=== PATIENT | female | born 1995 | race Caucasian/White ===

== ENCOUNTER 2019-08-01 18:17 | Day surgery (SDC) | payer BC, SELFPAY ==
[2019-08-01 18:18] VITALS: BP 151/96; PULSE 94; RESP 16; TEMP 36.6; O2SAT 99; BMI 43.5
--- NOTE | 2019-08-01 18:20 | US_ITS ---
We are attempting to reach an attending provider to discuss findings. An addendum with communication details will be sent when the communication is complete. STUDY: FIRST TRIMESTER OBSTETRICAL ULTRASOUND REASON FOR EXAM: Female, 23 years old PELVIC PAIN AND SPOTTING HCG 1716 ON 13 LMP: 05/18/2019 TECHNIQUE: Transvaginal TECHNICAL QUALITY: Adequate. PRIOR ULTRASOUND: None. FINDINGS: No intrauterine gestation is seen at this time. The uterus measures 10.6 x 4.8 x 4.6 cm. There is no demonstrated uterine fibroid. The cervix is closed. The right ovary measures 2.7 x 2.3 x 2.2 cm. There is no right ovarian cyst. There is no visualized right adnexal mass or complex lesion. The left ovary measures 2.6 x 2.5 x 3.1 cm. There is no left ovarian cyst. An ill-defined mass is present in the left adnexa measuring 4.4 x 4.2 x 3.6 cm. The abnormality is slightly hyperechoic. No yolk sac, gestational sac, or embryo is identified within the lesion at this time. There is a moderate amount of fluid in the cul de sac. Debris is present in the urinary bladder. US/Transvaginal w/Preg US IMPRESSION: No intrauterine gestation is visible at this time. An ill-defined slightly hyperechoic mass is present in the left adnexa measuring 4.4 x 4.2 x 3.6 cm. No yolk sac, gestational sac, or embryo is identified within the lesion at this time. Ectopic gestation cannot be excluded. CHILD CARE CENTER ADMINISTRATOR consultation and continued ultrasound and beta hCG follow up is likely indicated. Moderate free pelvic fluid. Electronically Signed: Adrien Og MD at 20:14 EDT Tel , Service support ,
--- NOTE | 2019-08-01 18:43 | ED.VIS.FEGU ---
History of Present Illness Chief Complaint: Vag Bld, Preg Informant: Patient Pain: Pelvic Pain Onset: Today Context: Gradual Onset Timing: Continuous Quality: Cramping, Sharp Location: Suprapubic Narrative: Patient is a 23-year-old G2, P1 currently 5 weeks with last menstrual period May 18 presenting with worsening abdominal pain and vaginal bleeding. Patient states she is had some spotting for the past 4 days and some mild cramping for the past 3 days. Today she had significant worsening of her pain that she describes as severe. States it is worse than labor pains. She states it radiates into her back. She is tried taking Tylenol with no relief of the pain. She called her TELEPHONE EXCHANGE OPERATOR who instructed her to come to the emergency room for ectopic rule out. She is had a very mild increase in her vaginal bleeding but states is not very much. No passage of clots or tissue. Patient denies any other complaints such as lightheadedness, nausea, vomiting or dizziness. She denies any urinary symptoms. Past Medical History - Allergies and Home Meds Allergies/Adverse Reactions: Allergies No Known Allergies Allergy (Verified 08/01/19 18:21) Past Medical History: None Surgical History: - - Bilateral tympanostomy tubes, colonoscopy Lives: Spouse/ Significant Other Smoking Status: Never smoker Review of Systems General: Denies: Chills, Fever, Sweats Eyes: Denies: Visual changes - bilaterally, Diplopia ENT: Denies: Rhinorrhea, Sore throat Cardiovascular: Denies: Chest pain, Palpitations Respiratory: Denies: Dyspnea, Cough, Dyspnea on exertion Gastrointestinal: Reports: Abdominal pain. Denies: Nausea, Vomiting, Diarrhea, Melena, Hematochezia Genitourinary: Reports: - - Vaginal bleeding, pelvic pain. Denies: Dysuria, Hematuria, Frequency Musculoskeletal: Denies: Back pain, Extremity Pain Skin: Denies: Rash, Wounds Neurological: Denies: Headache, Weakness, Numbness Physical Exam Vital Signs/Narrative: Vital Signs Temp Pulse Resp BP Pulse Ox 08/01/19 18:18 97.8 F 94 16 151/96 H 99 Inital Vital Signs reviewed: Yes General: Well nourished, Well developed, Obese Head: Normocephalic, Atraumatic Eyes: Perrl, EOMI ENT: Moist mucous membranes, No rhinorrhea Neck: Supple, Nontender Cardiovascular: Regular rate, Regular rhythm, No murmurs Respiratory: No distress, CTA bilaterally, Chest nontender Abdomen: Soft, Nondistended, Normal bowel sounds, Tender - Suprapubic region. Negative for: Guarding, Rebound tenderness Back: Nontender, Normal Inspection. Negative for: CVA tenderness Extremities: Nontender, No edema Skin: Normal color, No rash Neurological: Alert, Oriented x3, Cranial nerves II-XII grossly intact, Normal Strength, Normal Sensation Psychological: Normal affect Diagnostic/Tx/Re-eval Pelvic US: Free Fluid, Adnexal Mass, left Clinical Impression(s) from Imaging Studies Obstetrics Ultrasound 08/01/19 18:20 IMPRESSION: No intrauterine gestation is visible at this time. An ill-defined slightly hyperechoic mass is present in the left adnexa measuring 4.4 x 4.2 x 3.6 cm. No yolk sac, gestational sac, or embryo is identified within the lesion at this time. Ectopic gestation cannot be excluded. TELEPHONE EXCHANGE OPERATOR consultation and continued ultrasound and beta hCG follow up is likely indicated. Moderate free pelvic fluid. Electronically Signed: Adrein Og MD at 20:14 EDT Tel , Service support , ADDENDUM: 08/01/192052 IMPRESSION: No intrauterine gestation is visible at this time. An ill-defined slightly hyperechoic mass is present in the left adnexa measuring 4.4 x 4.2 x 3.6 cm. No yolk sac, gestational sac, or embryo is identified within the lesion at this time. Ectopic gestation cannot be excluded. TELEPHONE EXCHANGE OPERATOR consultation and continued ultrasound and beta hCG follow up is likely indicated. Moderate free pelvic fluid. N.B. : The above information has been verbally conveyed by Adrien Og MD to Bindu Woods MD, on 08/01/2019 20:46:44 (ET). Electronically Signed: Adrien Og MD at 20:14 EDT Tel , Service support , Laboratory Data 08/01/19 08/01/19 08/01/19 18:40 18:40 18:58 WBC 7.4 RBC 4.39 Hgb 13.6 Hct 39.9 MCV 90.9 MCH 31.0 MCHC 34.1 RDW Std Deviation 39.2 RDW Coeff of [place] 11.9 Plt Count 240 MPV 10.2 Immature Gran % (Auto) 0.100 Neut % (Auto) 58.2 Lymph % (Auto) 28.7 Williams % (Auto) 9.4 Eos % (Auto) 2.6 Baso % (Auto) 1.0 Absolute Neuts (auto) 4.3 Absolute Lymphs (auto) 2.11 Nucleated RBC % 0 Sodium Potassium Chloride Carbon Dioxide Anion Gap BUN Creatinine Estim Creat Clear Calc Est GFR (MDRD) Af Amer Est GFR (MDRD) Non-Af BUN/Creatinine Ratio Glucose Calcium Total Bilirubin AST ALT Alkaline Phosphatase Total Protein Albumin Globulin Albumin/Globulin Ratio HCG, Quant 786 H Urine Color Urine Clarity Urine pH Ur Specific [place] Urine Protein Urine Glucose (UA) Urine Ketones Urine Occult Blood Urine Nitrite Urine Bilirubin Urine Urobilinogen Ur Leukocyte Esterase Urine RBC Urine WBC Ur Squamous Epith Cells Amorphous Sediment Urine Bacteria Urine Mucus Blood Type Cancelled A1 Antigen Typing Rho(D) Type Antibody Screen 08/01/19 08/01/19 08/01/19 18:58 19:08 19:08 WBC RBC Hgb Hct MCV MCH MCHC RDW Std Deviation RDW Coeff of [place] Plt Count MPV Immature Gran % (Auto) Neut % (Auto) Lymph % (Auto) Williams % (Auto) Eos % (Auto) Baso % (Auto) Absolute Neuts (auto) Absolute Lymphs (auto) Nucleated RBC % Sodium 138 Potassium 4.1 Chloride 106 Carbon Dioxide 26.0 Anion Gap 6 BUN 10 Creatinine 0.74 Estim Creat Clear Calc 110.69 Est GFR (MDRD) Af Amer 123 Est GFR (MDRD) Non-Af 102 BUN/Creatinine Ratio 13.4 Glucose 93 Calcium 9.0 Total Bilirubin 0.20 AST 21 ALT 39 Alkaline Phosphatase 78 Total Protein 7.2 Albumin 3.5 Globulin 3.7 Albumin/Globulin Ratio 0.9 HCG, Quant Urine Color Urine Clarity Urine pH Ur Specific [place] Urine Protein Urine Glucose (UA) Urine Ketones Urine Occult Blood Urine Nitrite Urine Bilirubin Urine Urobilinogen Ur Leukocyte Esterase Urine RBC Urine WBC Ur Squamous Epith Cells Amorphous Sediment Urine Bacteria Urine Mucus Blood Type O POSITIVE Cancelled A1 Antigen Typing Cancelled Rho(D) Type Cancelled Antibody Screen NEGATIVE 08/01/19 19:40 WBC RBC Hgb Hct MCV MCH MCHC RDW Std Deviation RDW Coeff of [place] Plt Count MPV Immature Gran % (Auto) Neut % (Auto) Lymph % (Auto) Williams % (Auto) Eos % (Auto) Baso % (Auto) Absolute Neuts (auto) Absolute Lymphs (auto) Nucleated RBC % Sodium Potassium Chloride Carbon Dioxide Anion Gap BUN Creatinine Estim Creat Clear Calc Est GFR (MDRD) Af Amer Est GFR (MDRD) Non-Af BUN/Creatinine Ratio Glucose Calcium Total Bilirubin AST ALT Alkaline Phosphatase Total Protein Albumin Globulin Albumin/Globulin Ratio HCG, Quant Urine Color Yellow Urine Clarity Clear Urine pH 7.0 Ur Specific [place] 1.010 Urine Protein Negative Urine Glucose (UA) Normal Urine Ketones Negative Urine Occult Blood 25 H Urine Nitrite Negative Urine Bilirubin Negative Urine Urobilinogen Normal Ur Leukocyte Esterase Negative Urine RBC 0 SEEN Urine WBC 0 SEEN Ur Squamous Epith Cells 0-5 SEEN Amorphous Sediment 1+ Urine Bacteria 0 SEEN Urine Mucus 0 SEEN Blood Type A1 Antigen Typing Rho(D) Type Antibody Screen - Treatment/Re-Evaluation Treatment: Morphine IV Re-Evaluation: Feels Better - Medical Decision/Diagnostic Studies Patient is evaluated for sudden onset of worsening pelvic pain in the setting of 5 weeks gestation. Pelvic ultrasound obtained which is concerning for left adnexal mass/ectopic .Patient's quant is now 786. It was 1704 days ago. Patient is O+ and does not require RhoGam. Case is discussed with OB on-call who comes in to evaluate the patient at the bedside. Patient be taken for emergent ex lap for concern of ectopic with potential rupture. Patient remains hemodynamically stable in the emergency room. She is kept n.p.o. She does not require large volume resuscitation at this time. ED Disposition - Plan for ED Patient: Disposition: Acute Care Hospital [facility] Diagnosis: Ectopic
[2019-08-01] MEDS: Morphine 4 MG/ML Syringe IV (18:51)
[2019-08-01 18:53] LABS: Absolute Lymphocyte Count 2.11 X10^3/uL (0.83-4.51); Absolute Neutrophil Count 4.3 X10^3/uL (2.0-7.7); Basophil# 0.07 X10^3/uL; Eosinophil# 0.19 X10^3/uL; Eosinophils% 2.6 % (0-5); Hematocrit 39.9 % (37-47); Hemoglobin 13.6 g/dL (12.0-15.0); Lymphocyte # 2.11 X10^3/ul (4.0); Lymphocyte % 28.7 % (19-41); Mean Corp Hgb Conc 34.1 g/dL (32-36); Mean Corpuscular Volume 90.9 fL (81-99); Mean Platelet Vol. 10.2 fl (6.2-12.0); Monocyte# 0.69 X10^3/uL; Monocyte% 9.4 % (0-10); NRBC Flagged by Analyzer 0 % (0-5); Neutrophil # 4.29 X10^3/uL (2.7-7.7); Neutrophil % 58.2 % (47-70); Platelet Count 240 K/mm3 (150-450); RBC Distribution Width CV 11.9 % (11.6-14.6); RBC Distribution Width SD 39.2 fl (35.1-43.9); Red Blood Count 4.39 M/mm3 (4.2-5.4); White Blood Count 7.4 K/mm3 (4.4-11.0)
[2019-08-01] MEDS: Ondansetron 4 MG/2 ML Vial IV (18:59)
[2019-08-01 19:28] LABS: ALB/GLOB Ratio 0.9 RATIO (0.9-2.4); AST(SGOT) 21 U/L (15-37); Alanine Aminotransfer ALT/SGPT 39 U/L (13-56); Albumin, Serum 3.5 g/dL (3.2-5.0); Alkaline Phosphatase 78 U/L (45-117); Anion Gap 6 (5-15); BUN 10 mg/dL (7-18); BUN/Creat Ratio 13.4 RATIO (10-20); Chloride 106 mmol/L (98-107); Creatinine, Serum 0.74 mg/dL (0.55-1.02); EST Glomerular Filtration Rate 102 mL/min (>60); Est Glom Filt Rate - Afr Amer 123 mL/min (>60); Estimated Creatinine Clearance 110.69 ml/min; Globulin 3.7 g/dL (2.2-4.2); Glucose 93 mg/dL (74-106); Potassium 4.1 mmol/L (3.5-5.1); Protein, Total 7.2 g/dL (6.4-8.2); Sodium Level 138 mmol/L (136-145)
[2019-08-01 19:36] LABS: hCG Titer Quant., Serum 786 mIU/mL (1-3)
[2019-08-01 19:47] LABS: Bacteria 0 SEEN /hpf (None Seen); Mucous, Urine 0 SEEN /hpf (<or=2+); Red Blood Cells-Urine 0 SEEN /hpf (0-5); White Blood Cells 0 SEEN /hpf (0-5)
[2019-08-01 19:48] LABS: Color, Urine Yellow (Yellow); Glucose, Dipstick Normal (Normal); Ketone-Dipstick Negative (Negative); Leukocyte Esterase-Dipstick Negative /ul (Negative); Nitrite-Dipstick Negative (Negative); Occult Blood-Urine 25 /ul (Negative); Protein-Dipstick Negative (Negative); Urine Bilirubin Dipstick Negative (Negative); Urine Clarity Clear (Clear); Urine Urobilinogen Normal (Normal)
[2019-08-01 19:56] LABS: Amorphous Sediment 1+; Squamous Epithelial Cells - UA 0-5 SEEN /hpf (5-10)
[2019-08-01 20:33] VITALS: BP 142/86; PULSE 86; RESP 16; TEMP 36.8; O2SAT 96; BMI 43.5
[2019-08-01 20:41] VITALS: BP 142/86; PULSE 86; RESP 16; O2SAT 96
--- NOTE | 2019-08-01 20:54 | PCM.HP.OB ---
- Problem List (1) Ectopic Status: Acute (2) Abdominal pain Status: Acute (3) Vaginal bleeding Status: Acute History Date of Admission: 08/01/19 History of this : This is a 23 year-old, G2, P1, at ~5 weeks gestational age presents to the emergency department with severe abdominal pain and vaginal bleeding. She states she is about 5 weeks based on LMP. She had a hCG quant on July 23 that was 721 followed by an hCG quant on July 27 that was 1716. She states she has had spotting for several days, and today she began having severe abdominal pain which is what brought her to the ER. She states she was doubled over in pain and could not stand up due to the pain. She has no other complaints. Medical History: Medical History (Last Updated 08/01/19 @ 20:[address] Rosy Rivera, DO) History of chlamydia Z86.19 History of migraine Z86.69 History of use of contraceptive intrauterine device (IUD) Z92.0 Surgical History: Surgical History (Last Updated 08/01/19 @ 20:[address] Rosy Rivera, ) History of colonoscopy Z98.890 History of placement of ear tubes Z96.22 History of tonsillectomy Z90.89 Allergies No Known Allergies Allergy (Verified 08/01/19 18:21) Home Medications: Home Medications Vit No.130/Iron/Folic [ Tablet] 1 ea PO DAILY 08/01/19 Smoking Status: Never smoker History Past Pregnancies: Past Pregnancies Delivery Date Name GA/ Weeks Outcome Route Wt Sex Labor Length Anesthesia Delivery Location Provider FOB Review of Systems Constitutional: Reports: - - No lightheadedness or dizziness. Denies: Chills, Fever, Malaise Respiratory: Denies: Cough, Shortness of Breath Gastrointestinal: Reports: Abdominal Pain, Diarrhea Gynecological: Reports: Vaginal bleeding Psychiatric: Denies: Anxiety, Depression Hematologic/ Lymphatic: Denies: Easy Bruising, Easy Bleeding Physical Exam Vitals: Vital Signs Temp Pulse Resp BP Pulse Ox 98.3 F 86 16 142/86 H 96 08/01/19 20:33 08/01/19 20:41 08/01/19 20:41 08/01/19 20:41 08/01/19 20:41 General: Alert, No apparent distress, - - Patient was tearful on the phone before coming into the ED because of the pain, more comfortable after receiving pain medication Assessment/Plan All Active Problems (Last Updated 08/01/19 @ 20:[address] Rosy Rivera, DO) Ectopic (Acute) Abdominal pain (Acute) Vaginal bleeding (Acute) This is a 23 year-old, who presented to the ER with early , vaginal bleeding, severe abdominal pain. Vital signs stable. Hemoglobin 13. Blood type O+. Pelvic ultrasound shows concern for an ectopic . hCG quant has decreased from prior that was drawn in the office. Discussed with patient concern for an ectopic , and all other possible etiologies. Discussed risks, benefits, alternatives of surgical management of an ectopic . Reviewed laparoscopic removal of an ectopic , possible salpingo-oophorectomy, possible laparotomy. Also discussed COVID-19. After full discussion of surgical management the patient desires to proceed. Consent was signed.
[2019-08-01] MEDS: 0.9% Normal Saline 1,000 ML 125 ML IV (21:30)
--- NOTE | 2019-08-01 21:30 | PCM.OPRPT ---
Problem List (1) Ectopic Status: Acute (2) Abdominal pain Status: Acute (3) Vaginal bleeding Status: Acute Report of Operation Date of Procedure: 08/01/19 Pre-Operative Diagnosis: Ectopic Post-Operative Diagnosis: Ruptured ectopic with hemoperitoneum Surgery/Procedure Performed:: Laparoscopic removal of ectopic , left salpingectomy Description of Surgical Findings:: Ruptured ectopic in the left fallopian tube with adhesions present between the tube to the ovary. The left tube was actively bleeding. Normal appearing uterus, bilateral ovaries, and right fallopian tube. Moderate amount of blood in pelvis. Type of Anesthesia:: General Special Medications: None Specimen's removed: Left fallopian tube, ectopic Drains: None Estimated Blood Loss (mL): 50 Fluids Replaced: 1000 Description of Procedure: Risk, benefits, and alternatives to surgery were discussed with the patient and consent was obtained prior to surgery. The patient was taken to the operating room and general anesthesia was induced. She was then positioned in dorsal lithotomy position using yellowfin stirrups, and she was prepped and draped in the normal sterile fashion. A weighted speculum was then placed in the vagina. The anterior lip of the cervix was grasped with a single-tooth tenaculum. A Mcihelle cannula was then placed for uterine manipulation. Gloves were changed and attention was turned to the abdominal portion of the case. Local was injected inferior to the umbilicus, an incision was made to accommodate a 5 mm port. The 5 mm port was placed under direct visualization. Once confirmed intraperitoneal CO2 gas was connected and the abdomen was insufflated to adequate distention. Findings were as noted above. Next a left lateral 5 mm port was placed. A 5 mm right lateral port was placed. An 11 mm suprapubic port was placed. The ectopic was identified in the left fallopian tube and the end of the fallopian tube was grasped with a grasper, and the LigaSure device was then used to transect the mesosalpinx and transect the fallopian tube proximal to the ectopic . An Endo Catch bag was then used to remove the left fallopian tube and the ectopic . This was then sent to pathology for review. The area was examined and noted to be hemostatic. All ports were removed and CO2 gas was disconnected and the abdomen was desufflated. The fascia of the suprapubic incision was closed with a figure of eight suture. All laparoscopic incisions were closed in a subcuticular pattern fashion. At the end of the procedure the uterine manipulator was removed from the cervix and a vaginal sweep was performed. Instrument count was correct. Patient was taken to the recovery room in stable condition. Grafts/Implants Used: None - Complications None - Admit VTE Documentation VTE Present on Admission: No VTE Mechan Device Prophylaxis: SCD's
[2019-08-01 21:34] VITALS: BP 142/86; PULSE 86; RESP 16; TEMP 36.8; O2SAT 96
--- NOTE | 2019-08-01 21:42 | ED.RN ---
REPORT TO GALO FRANCO IN OR. PT TRANSFERRED OUT OF ED TO OR. PT SKIN P/W/D, RESP EVEN AND UNLABORED, PT A&O X 3. NO DISTRESS NOTED.
[2019-08-02 00:05] VITALS: BP 142/86; BP 143/89; PULSE 86; RESP 18; TEMP 36.7; O2SAT 98
[2019-08-02] MEDS: 0.9% Normal Saline 1,000 ML 125 ML IV (00:10)
[2019-08-02 00:15] VITALS: BP 131/80; BP 142/86; PULSE 75; RESP 18; O2SAT 100
[2019-08-02 00:30] VITALS: BP 133/74; BP 142/86; PULSE 73; RESP 18; O2SAT 100
[2019-08-02] MEDS: Ketorolac 30 MG/ML Syringe IV (00:41)
--- NOTE | 2019-08-02 00:43 | DCINST_ITS ---
You will use the following diet at home:: No restrictions Your food should be the consistency of: Regular Discharge Activity: May Not Drive, May not drive while taking narcotic pain medications., May Shower, May Take a Tub Bath May resume sexual activity in: 2 weeks Ice area for (Minutes): 15 Weight Bearing Status: Weight bearing as tolerated Lifting Restrictions: No lifting greater than 15 pounds for 4 weeks Call your doctor if your incision/area has: Sudden Increased Bleeding, Increased Pain/ Swelling, Increased Redness, Foul Smelling Discharge, Swelling at the incision site Call your doctor if you observe: Fever of 101 or Higher, Inability to urinate, Inability to have a bowel movement, Using more than one pad per hour, Shortness of breath, Dizziness, Chest pain, Increased palpitations (irregular heartbeat), Calf discomfort, Uncontrolled pain Suture Line Care: Avoid Pulling/Pushing, Avoid Pinching/Bending Cleanse incision/area with: Soap & Water Allergies/Adverse Reactions: Allergies No Known Allergies Allergy (Verified 08/01/19 18:21) Medications to take at Discharge Vit No.130/Iron/Folic [ Tablet] 1 ea PO DAILY 08/01/19 Oxycodone HCl/Acetaminophen [Percocet 5/325] 1 tab PO Q6H PRN PRN 7 Days #20 tab 08/02/19 The following prescriptions were given: Oxycodone HCl/Acetaminophen [Percocet 5/325] 1 tab PO Q6H PRN PRN 7 Days #20 tab PRN Reason: Pain Score 6-10/10 Transmission Status: Received by DAVID ROSSI-[address] [facility] Primary Care Physician: Kirsty Fowler MD [Primary Care Provider] - Test Results: Test results from this visit will be discussed in further detail at your follow- up appointment, if applicable. Please Follow Up With: Rosy Rivera DO When: 1 week for a virtual visit
[2019-08-02 00:45] VITALS: BP 126/73; BP 142/86; PULSE 83; RESP 18; O2SAT 100
[2019-08-02 00:51] VITALS: BP 142/86; PULSE 80; RESP 18; TEMP 36.9; O2SAT 100
[2019-08-02] MEDS: HYDROcodone Bitartrate/Apap 5/325 Tablet PO (01:07)
[2019-08-02 01:40] VITALS: BP 132/78; BP 142/86; PULSE 87; RESP 18; TEMP 36.9; O2SAT 100
--- NOTE | 2019-08-03 | FALS_PTH ---
PATIENT: BRANNON STILES LOC: [facility] [place] U#:[id number] AGE/SX: 23/F ROOM: RE08/01/[address]: Dr. Rosy Rivera DO : 1995 BED: DIS: 08/02/2019 SPEC #: [id number] RECD: 08/03/19 12:12 STATUS: HEATH MING #: [id number] ASHWINI: 08/03/19 00:[address]: Rosy Rivera DEPT: SURGICAL PATHOLOGY RECD BY: Devin Arenas ENTERED: 08/03/19 12:13 SP TYPE: FALL TUBES OTHR DR: Dr. Kirsty Fowler MD Tissues: ECTOPIC PREG Procedures: Surgery Specimen Level IV HEADER OPERATION: Laparoscopic removal ectopic , left salpingectomy PRE-OP DIAGNOSIS: Ectopic TISSUE SUBMITTED: Left fallopian tube, ectopic MICROSCOPIC DIAGNOSIS Left fallopian tube, ectopic , salpingectomy: Fallopian tube with immature chorionic villi, decidua and blood clots (ectopic ). RUSS:[email or web address] 08/04/19 MICROSCOPIC DESCRIPTION Slides are reviewed. GROSS DESCRIPTION Received in fixative is one container labeled with the patient's name and designated left fallopian tube, ectopic . The specimen consists of a fallopian tube measuring 4 cm in length and 1.5 cm in diameter. It is covered with blood clots. Obvious fimbrial end is not identified. Sections reveal the lumen is filled with blood clots. No obvious tissue is identified. Banquet Pilot sections are submitted in four cassettes. / RUSS:[email or web address] 08/03/19 TC:5 CPT: 17748
== END 2019-08-02 00:13 | disposition home or self-care (01) ==
LOC: ED 19:59 → SDC 08-03 10:51
PROVIDERS: Emergency Provider Emergency Medicine; PCP Internal Medicine; Visit Provider Obstetrics & Gynecology
PROC: 10T24ZZ Resection of Products of Conception, Ectopic, Percutaneous Endoscopic Approach (ICD-10-PCS; CPT 59150; principal; 2019-08-01 22:00)
DX: O00.102 Left tubal pregnancy without intrauterine pregnancy (principal)
CPT/HCPCS: 59151; 36415; 76817; 80053; 81001; 84702; 85025; 86850; 86900; 86901; 88305; 99285; J7030; A4216; J2405

== ENCOUNTER 2020-01-13 14:32 | Emergency (ER) | payer BC, SELFPAY ==
[2020-01-13 14:34] VITALS: BP 138/85; PULSE 93; RESP 16; TEMP 36.1; O2SAT 97; BMI 43.5
--- NOTE | 2020-01-13 15:11 | US_ITS ---
STUDY: FIRST TRIMESTER OBSTETRICAL ULTRASOUND REASON FOR EXAM: Female, 24 years old CRAMPS N AND V LMP: October 25, 2019 TECHNIQUE: Transvaginal TECHNICAL QUALITY: Adequate. PRIOR ULTRASOUND: None. FINDINGS: There is visualization of a single gestational sac in a normal intrauterine position. The mean sac diameter (MSD) measures 2.2 cm, indicating an estimated gestational age (EGA) of 7 weeks, 2 days. The gestational sac shape is within normal limits. There is a visualized yolk sac. The yolk sac measures 0.4 cm. The placenta is non-visualized. There is visualization of a live embryo. The crown-rump length (CRL) measures 1.1 cm, indicating an estimated gestational age (EGA) of 7 weeks, 2 days. There is demonstrated cardiac activity with a heart rate of 119 bpm. The estimated gestation age (EGA) by LMP is 11 weeks, 3 days. The estimated date of delivery (ABILIO) by LMP is July 31, 2020. The estimated gestation age (EGA) by US is 7 weeks, 2 days. The estimated date of delivery (ABILIO) by US is August 29, 2020. The uterus measures 10.4 x 6.1 x 4.4 cm. There is no demonstrated uterine fibroid. The cervix is closed. The right ovary measures 3.8 x 2.5 x 2.0 cm. There is no right ovarian cyst. There is no visualized right adnexal mass or complex lesion. The left ovary measures 2.8 x 2.0 x 1.4 cm. There is no left ovarian cyst. There is no visualized left adnexal mass or complex lesion. There is no fluid in the cul de sac. US/Transvaginal w/Preg US IMPRESSION: Single intrauterine gestation 7 weeks 2 days with estimated due date August 29, 2020. Electronically Signed: Chuy Womack MD at 17:45 EDT , Service support ,
--- NOTE | 2020-01-13 15:12 | ED.VIS.GEN ---
History of Present Illness Chief Complaint: Nausea/Vomiting Informant: Patient Narrative: 24-year-old female presenting with nausea, vomiting, body aches, fever. She states her symptoms started on Saturday. Initially she just felt tired. She thought she all related because she is 10 weeks . On Saturday she was sent home because she had a fever of just over 100. She states that he has had body aches that are improving. Her fever is responding to Tylenol. She called her CONTRACT ADMINISTRATION MANAGER because she is having difficulty holding down food and fluids and after relating her symptoms to her she was told to come to the emergency room for COVID?19 testing. Patient previously had an ectopic with emergent surgery and July. She is stating that she has some mild cramping in her abdomen. She has had not had any vaginal bleeding. She states she does have decreased urinary output but denies dysuria or hematuria. She states scheduled for an ultrasound tomorrow but she is unsure why they were repeating it 2 weeks after the first vaginal ultrasound. She does not have a cough or shortness of breath. Past Medical History - Allergies and Home Meds Allergies/Adverse Reactions: Allergies No Known Allergies Allergy (Verified 01/13/20 14:35) Primary Care Physician: Kirsty Fowler MD [Primary Care Provider] - Past Medical History: - - Reviewed in problem list Surgical History: - - Bilateral tympanostomy tubes, colonoscopy, ectopic Lives: Spouse/ Significant Other Smoking Status: Never smoker Alcohol: None Drugs: None Review of Systems General: Reports: Chills, Fever, Malaise Eyes: Denies: Visual changes - bilaterally, Diplopia ENT: Reports: Bilateral ear pain Cardiovascular: Denies: Chest pain, Palpitations Respiratory: Denies: Dyspnea, Cough Gastrointestinal: Reports: Abdominal pain - Mild abdominal cramping, Nausea, Vomiting Genitourinary: Reports: - - Decreased urinary output. Denies: Dysuria, Hematuria Musculoskeletal: Reports: Myalgias. Denies: Arthralgias Skin: Denies: Rash, Abscess Neurological: Denies: Headache, Weakness Psych: Denies: Depression, Anxiety Physical Exam Vital Signs/Narrative: Vital Signs Temp Pulse Resp BP Pulse Ox 01/13/20 14:34 97 F L 93 16 138/85 H 97 Inital Vital Signs reviewed: Yes General: Well nourished, No Acute Distress Head: Normocephalic, Atraumatic Eyes: Perrl, EOMI. Negative for: Scleral icterus ENT: Moist mucous membranes, No rhinorrhea. Negative for: Nasal congestion Cardiovascular: Regular rate, Regular rhythm Respiratory: No distress, CTA bilaterally, Chest nontender Abdomen: Soft, Nontender, Nondistended Extremities: Nontender, No edema Skin: Normal color, No rash. Negative for: Pallor Neurological: Alert, Oriented x3 Psychological: Normal affect, Normal Mood Diagnostic/Tx/Re-eval - Medical Decision Making Clinical Impression(s) from Imaging Studies Obstetrics Ultrasound 01/13/20 15:11 IMPRESSION: Single intrauterine gestation 7 weeks 2 days with estimated due date August 29, 2020. Electronically Signed: Chuy Womack MD at 17:45 EDT , Service support , Laboratory Data 01/13/20 01/13/20 01/13/20 16:25 16:25 16:25 WBC 8.4 RBC 4.66 Hgb 14.2 Hct 42.7 MCV 91.6 MCH 30.5 MCHC 33.3 RDW Std Deviation 40.6 RDW Coeff of [place] 12.2 Plt Count 231 MPV 10.0 Immature Gran % (Auto) 0.200 Neut % (Auto) 71.5 H Lymph % (Auto) 19.0 Worth % (Auto) 7.6 Eos % (Auto) 1.3 Baso % (Auto) 0.4 Absolute Neuts (auto) 6.0 Absolute Lymphs (auto) 1.60 Nucleated RBC % 0 Sodium 134 L Potassium 3.9 Chloride 104 Carbon Dioxide 25.0 Anion Gap 5 BUN 10 Creatinine 0.81 Estim Creat Clear Calc 100.26 Est GFR (MDRD) Af Amer 112 Est GFR (MDRD) Non-Af 93 BUN/Creatinine Ratio 12.4 Glucose 82 Calcium 9.0 Magnesium 2.2 Total Bilirubin 0.40 AST 13 L ALT 30 Alkaline Phosphatase 102 Total Protein 8.2 Albumin 3.6 Globulin 4.6 H Albumin/Globulin Ratio 0.8 L HCG, Quant 25916 H 24-year-old female presenting with viral symptoms as well as hyperemesis gravidarum. I did check blood work and this is normal. Her serum quant is appropriate. After discussing the patient with her CONTRACT ADMINISTRATION MANAGER they were bringing her in tomorrow for an ultrasound because they had a 5-week old ultrasound due to previous ectopic . Her CONTRACT ADMINISTRATION MANAGER stated that they were bringing her in to rule out ectopic since it was so early last time. She recommended getting a ultrasound here in the ED today because the patient has to quarantine now due to COVID symptoms. Patient's ultrasound does not identify ectopic . Viable fetus as documented above. Patient's nausea is improved. She be sent home with Zofran. She will quarantine until she gets her test results. Impression: 1. Possible exposure to COVID?19 2. Viral syndrome 3. Abdominal cramping 4. hyperemesis gravidarum ED Disposition - Plan for ED Patient: Disposition: Home or Assisted Living Instructions: Hyperemesis Gravidarum (Severe Morning Sickness), ED Viral Syndrome Prescriptions: Ondansetron [Zofran Odt] 4 mg PO Q8H PRN PRN #10 tab PRN Reason: Nausea Transmission Status: Received by DAVID ROSSI-[id number] [facility] Referrals: Kirsty Fowler MD [Primary Care Provider] -
[2020-01-13 16:37] LABS: Basophil# 0.03 X10^3/uL; Basophil% 0.4 % (0-1); Eosinophil# 0.11 X10^3/uL; Eosinophils% 1.3 % (0-5); Hematocrit 42.7 % (37-47); Hemoglobin 14.2 g/dL (12.0-15.0); Mean Corp Hgb Conc 33.3 g/dL (32-36); Mean Corpuscular Hgb 30.5 pg (27.0-32.0); Mean Corpuscular Volume 91.6 fL (81-99); Monocyte# 0.64 X10^3/uL; Monocyte% 7.6 % (0-10); NRBC Flagged by Analyzer 0 % (0-5); Neutrophil # 6.04 X10^3/uL (2.7-7.7); Neutrophil % 71.5 % (47-70); Platelet Count 231 K/mm3 (150-450); RBC Distribution Width CV 12.2 % (11.6-14.6); RBC Distribution Width SD 40.6 fl (35.1-43.9); Red Blood Count 4.66 M/mm3 (4.2-5.4); White Blood Count 8.4 K/mm3 (4.4-11.0)
[2020-01-13] MEDS: Ondansetron 4 MG/2 ML Vial IV (16:48)
[2020-01-13 16:54] VITALS: BP 142/66; PULSE 69; RESP 17; O2SAT 99
[2020-01-13 16:55] LABS: ALB/GLOB Ratio 0.8 RATIO (0.9-2.4); AST(SGOT) 13 U/L (15-37); Alanine Aminotransfer ALT/SGPT 30 U/L (13-56); Albumin, Serum 3.6 g/dL (3.2-5.0); Alkaline Phosphatase 102 U/L (45-117); Anion Gap 5 (5-15); BUN 10 mg/dL (7-18); BUN/Creat Ratio 12.4 RATIO (10-20); Chloride 104 mmol/L (98-107); Creatinine, Serum 0.81 mg/dL (0.55-1.02); EST Glomerular Filtration Rate 93 mL/min (>60); Est Glom Filt Rate - Afr Amer 112 mL/min (>60); Estimated Creatinine Clearance 100.26 ml/min; Globulin 4.6 g/dL (2.2-4.2); Glucose 82 mg/dL (74-106); Magnesium 2.2 mg/dL (1.6-2.6); Potassium 3.9 mmol/L (3.5-5.1); Protein, Total 8.2 g/dL (6.4-8.2); Sodium Level 134 mmol/L (136-145)
[2020-01-13 17:26] LABS: hCG Titer Quant., Serum 45250 mIU/mL (1-3)
[2020-01-13 18:59] VITALS: BP 138/72; PULSE 78; RESP 17; O2SAT 97
== END 2020-01-13 19:01 | disposition home or self-care (01) ==
LOC: ED 15:54
PROVIDERS: Emergency Provider Student in an Organized Health Care Education/Training Program; PCP Internal Medicine
DX: O98.511 Other viral diseases complicating pregnancy, first trimester (principal); O26.891 Other specified pregnancy related conditions, first trimester; B34.9 Viral infection, unspecified; R10.9 Unspecified abdominal pain; O21.0 Mild hyperemesis gravidarum; Z3A.10 10 weeks gestation of pregnancy
CPT/HCPCS: 76817; 80053; 83735; 84702; 85025; 87635; 96374; 99284; J7030; A4216; J2405; U0003

== ENCOUNTER 2020-08-22 07:10 | Inpatient (IN) | payer BC, SELFPAY ==
[2020-08-22] VITALS (64 sets, daily range): BP systolic 102–147; BP diastolic 52–83; PULSE 74–108; TEMP 36.6–37.2; O2SAT 82–100; BMI 46.4
[2020-08-22] MEDS: Lactated Ringers 1,000 ML 50 ML IV (07:40)
[2020-08-22 07:59] LABS: Absolute Lymphocyte Count 2.09 X10^3/uL (0.83-4.51); Basophil# 0.04 X10^3/uL; Basophil% 0.4 % (0-1); Eosinophil# 0.14 X10^3/uL; Eosinophils% 1.5 % (0-5); Hematocrit 33.4 % (37-47); Hemoglobin 10.7 g/dL (12.0-15.0); Lymphocyte # 2.09 X10^3/ul (0.83-4.51); Lymphocyte % 22.5 % (19-41); Mean Corpuscular Volume 84.1 fL (81-99); Mean Platelet Vol. 10.4 fl (6.2-12.0); Monocyte% 9.7 % (0-10); NRBC Flagged by Analyzer 0 % (0-5); Neutrophil # 6.03 X10^3/uL (2.7-7.7); Neutrophil % 64.9 % (47-70); Platelet Count 215 K/mm3 (150-450); RBC Distribution Width CV 12.8 % (11.6-14.6); RBC Distribution Width SD 38.5 fl (35.1-43.9); Red Blood Count 3.97 M/mm3 (4.2-5.4); White Blood Count 9.3 K/mm3 (4.4-11.0)
[2020-08-22] MEDS: Oxytocin 30 units/NS 500 ml 30 UNITS/500 ML IV.SOLN IV (08:12)
[2020-08-22] MEDS: 0.9% Normal Saline Single 100 ML IV.SOLN. INTRA-UTER (08:15)
[2020-08-22 09:30] LABS: Bedside Glucose 170 mg/dL (70-110)
[2020-08-22 09:36] LABS: Bedside Glucose 143 mg/dL (70-110)
[2020-08-22 10:41] LABS: Bedside Glucose 117 mg/dL (70-110)
[2020-08-22 11:40] LABS: Bedside Glucose 103 mg/dL (70-110)
[2020-08-22] MEDS: Lactated Ringers 500 ML 999 ML IV ×2 (12:15→20:35)
[2020-08-22] MEDS: fentaNYL-bupivacaine (epidural) 100 ML BAG EPIDURAL ×2 (13:08→18:50)
--- NOTE | 2020-08-22 13:16 | HP.PCM.OB_ITS ---
[facility] - General General Date of Admission: 08/22/20 Chief Complaint: induction of labor [facility] Narrative BRANNON STILES, is a 24 F 3 para 1-0-1-1 who presents at 39 weeks gestation for induction of labor due to gestational diabetes on insulin. She denies any vaginal bleeding or leaking of fluid. She is had good movement. No regular contractions. was complicated to date by gestational diabetes. She also tested positive for chlamydia early in the but repeat screen was negative. FOR[facility]LY [facility], [facility] Medical History (Updated 08/22/20 @ 13:[address] Kellee Resendiz MD) Ectopic Gestational diabetes History of chlamydia History of migraine History of use of contraceptive intrauterine device (IUD) Home Medications vit no.[id number] 1 ea PO DAILY 08/01/19 [History Last Taken 08/22/20 06:00] insulin NPH isoph U-100 human [Humulin N NPH U-100 Insulin] 14 unit SUBCUT QHS 08/22/20 [History Last Taken 08/21/20 22:00] Allergy/AdvReac Type Severity Reaction Status Date / Time No Known Allergies Allergy Verified 01/13/20 14:35 Surgical History (Updated 01/13/20 @ 15:[address] Carlos Hernandez, DO) History of colonoscopy History of placement of ear tubes History of tonsillectomy Social History Smoking Status: Never smoker History Elective abortions Hx Para 1 Spontaneous abortions Hx # Term Pregnancies Ectopic pregnancies Hx # Pregnancies Multiple births # of living children NST FHR Rate Baby A Baseline: normal Variability:: Moderate Accelerations:: 15 x 15 Decelerations:: None NST Reactive:: Yes FHR Category:: Category I (at admission) ROS Constitutional Constitutional: Denies fatigue, fever(s) or malaise Eyes Eyes: Denies change in vision ENT HEENT: Denies dizziness or headache(s) Cardiovascular Cardiovascular: Denies chest pain, dyspnea or lightheadedness Respiratory/Chest Respiratory/Chest: Denies cough or dyspnea Gastrointestinal Gastrointestinal: Denies change in bowel habits Genitourinary Genitourinary: Denies burning urination or genital lesions Integumentary Integumentary: Denies rash Neurologic Neurologic: Denies confusion, dizziness, headache(s), numbness or weakness Vital Signs Vital Signs Vital Signs: 08/22/20 07:47 08/22/20 07:48 08/22/20 07:54 Temperature 98.3 F Temperature Source Temporal Pulse Rate 103 H 94 Blood Pressure 119/74 BP Systolic 119 BP Diastolic 74 Pulse Ox 98 08/22/20 08:45 08/22/20 08:46 08/22/20 09:32 Temperature 98.0 F 97.9 F Temperature Source Temporal Temporal Pulse Rate 97 Blood Pressure 134/75 H BP Systolic 134 BP Diastolic 75 Pulse Ox 08/22/20 09:33 08/22/20 10:33 08/22/20 11:28 Temperature 97.9 F 97.9 F Temperature Source Temporal Temporal Pulse Rate 84 104 H Blood Pressure 141/75 H 130/83 H BP Systolic 141 130 BP Diastolic 75 83 Pulse Ox 92 08/22/20 11:29 08/22/20 12:10 08/22/20 12:11 Temperature 97.8 F Temperature Source Temporal Pulse Rate 84 81 Blood Pressure 115/61 130/81 H BP Systolic 115 130 BP Diastolic 61 81 Pulse Ox 08/22/20 12:41 08/22/20 12:43 08/22/20 12:46 Temperature Temperature Source Pulse Rate 81 89 83 Blood Pressure 134/83 H BP Systolic 134 BP Diastolic 83 Pulse Ox 100 100 08/22/20 12:48 08/22/20 12:51 08/22/20 12:53 Temperature Temperature Source Pulse Rate 82 88 100 Blood Pressure 130/78 H BP Systolic 130 BP Diastolic 78 Pulse Ox 90 82 91 08/22/20 12:55 08/22/20 12:56 08/22/20 12:59 Temperature Temperature Source Pulse Rate 93 88 95 Blood Pressure 125/74 H 128/77 H BP Systolic 125 128 BP Diastolic 74 77 Pulse Ox 99 08/22/20 13:01 08/22/20 13:06 08/22/20 13:07 Temperature Temperature Source Pulse Rate 96 88 87 Blood Pressure 120/75 BP Systolic 120 BP Diastolic 75 Pulse Ox 100 100 08/22/20 13:10 08/22/20 13:11 08/22/20 13:15 Temperature 98.6 F Temperature Source Temporal Pulse Rate 84 80 Blood Pressure 124/81 H 116/73 BP Systolic 124 116 BP Diastolic 81 73 Pulse Ox 100 Physical Exam Const alert and no apparent distress General Appearance: cooperative HEENT normocephalic Resp normal respiratory effort Cardio regular rate GI soft to palpation GI Narrative: gravid, nontender, appropriate for gestational age Extremity no calf tenderness General Extremity: edema Skin no wounds Rashes: No rashes noted Psych activity/motor behavior normal Assessment & Plan (1) 39 weeks gestation of : (2) Supervision of other high risk pregnancies, third trimester: (3) Gestational diabetes requiring insulin: PLAN: 24-year-old 3 para 0-1-0-1 1 at 39 weeks gestation for induction of labor due to gestational diabetes on insulin. Will monitor blood sugars. Estimated weight is less than 4500 g clinically and by ultrasound. Pelvis clinically adequate to expect vaginal delivery. May have epidural as needed for pain control. Plan Pitocin, Hernández and artificial rupture of membranes for induction. Procedure note: At approximately 8:30 AM a Hernández catheter was placed over a stylette through the internal cervical os and the balloon inflated to 30 cc. Placement over internal cervical os was confirmed. Patient tolerated the procedure well. (4) Maternal obesity syndrome in third trimester: (5) Obesity, Class III, BMI 40-49.9 (morbid obesity):
[2020-08-22 15:15] LABS: Bedside Glucose 82 mg/dL (70-110)
[2020-08-22] MEDS: Lactated Ringers 1,000 ML 200 ML IV ×2 (17:28→23:00)
[2020-08-22] MEDS: Acetaminophen 325 MG Tablet PO ×2 (18:52→22:45)
[2020-08-22] MEDS: Ondansetron 4 MG/2 ML Vial IV (19:31)
[2020-08-22 20:00] LABS: Bedside Glucose 77 mg/dL (70-110)
[2020-08-22 22:11] LABS: Bedside Glucose 88 mg/dL (70-110)
[2020-08-22 23:16] LABS: Bedside Glucose 93 mg/dL (70-110)
[2020-08-23] VITALS (26 sets, daily range): BP systolic 93–152; BP diastolic 45–102; PULSE 75–114; RESP 14–18; TEMP 36.3–38.1
[2020-08-23] MEDS: fentaNYL-bupivacaine (epidural) 100 ML BAG EPIDURAL (00:22)
[2020-08-23 01:10] LABS: Bedside Glucose 95 mg/dL (70-110)
[2020-08-23 02:20] LABS: Bedside Glucose 105 mg/dL (70-110)
[2020-08-23] MEDS: Oxytocin 30 units/NS 500 ml 30 UNITS/500 ML IV.SOLN 334 UNITS IV (03:13)
[2020-08-23] MEDS: miSOPROStol 200 MCG Tablet 800 MCG RC (03:20)
--- NOTE | 2020-08-23 03:25 | EX.PCM.OBRPT ---
Maternal Data Information Final ABILIO: 08/29/20 Final ABILIO Source: US <20 weeks Gestational age: 39 weeks 1 day Vaginal Delivery Maternal Presentation Maternal Presentation: Medically Indicated Induction Type of Induction: Pitocin and Amniotomy Medical Reason for Induction: - (gestational diabetes, insulin controlled) Operative Information Date of Procedure: 08/23/20 Pre-Operative Diagnosis: labor Post-Operative Diagnosis: same Surgery / Procedure Performed: Spontaneous Vaginal Delivery Type of Anesthesia: Epidural Special Medications: none Drain: Hernández to straight drain Estimated Blood Loss: 400 Findings Description of Procedure: A vigorous [female] infant was delivered [RALPH] over a small first-degree perineal laceration. The remainder the was delivered with maternal pushing and gentle traction only in less than 15 seconds. The Pitocin infusion was initiated for active management of the third stage. The cord was clamped and cut [after 1 minute]. The was attended to by the waiting nursing staff. The placenta was delivered spontaneously and intact. The cervix and vagina were intact. The first-degree perineal laceration was repaired with 2-0 Vicryl suture in a running standard fashion. Sponge and needle counts were correct. A vaginal sweep was completed by me. [id number] Presentation: RALPH Amniotic Membrane Rupture Type: Artificial Amniotic Fluid Description: Clear Placental Delivery Description: Spontaneous Placenta Disposition: [facility] Cord Vessel Description: 3 Vessels Cord Entanglement: None Infant A Gender: Female (Dany[place]rescentchel) (1 minute): 8 (5 minute): 9 Delayed Cord Clamping: Yes Post Vaginal Delivery Medications Given After Delivery: IV Pitocin and - (cytotec 800 mcg rectally to prevent atony) Episiotomy Description: None Laceration: 1st degree Complication Complications: None
[2020-08-23 05:20] LABS: Bedside Glucose 180 mg/dL (70-110)
--- NOTE | 2020-08-23 08:16 | PCM.PN.OB ---
Subjective Subjective: Patient seen at bedside. Up voiding in bathroom. Feeling good but tired. Denies any pain. with support. Had difficulty last baby and stopped. Anticipate discharge home tomorrow. Objective Data Objective Data Vital Signs: Vital Signs Temp Pulse Resp BP Pulse Ox 98.1 F 93 18 140/63 H 99 08/23/20 07:44 08/23/20 07:44 08/23/20 07:44 08/23/20 07:44 08/22/20 23:02 Oxygen Delivery Method Room Air Weight: 296 lb 8 oz Body Mass Index (BMI) 46.4 Intake & Output: Intake and Output for Last 24 Hours 08/21/20 08/22/20 08/23/20 23:59 23:59 23:59 Intake Total 3396.29 / 3396.29 3426.50 / 3426.50 Output Total 900 / 900 200 / 200 Balance 2496.29 / 2496.29 3226.50 / 3226.50 Lab / Micro Data Result Diagrams: 08/22/20 07:40 Labs: Laboratory Results - last 24 hr 08/22/20 08/22/20 08/22/20 07:40 08:21 09:31 POC Glucose 170 H 143 H Blood Type O POSITIVE Antibody Screen NEGATIVE 08/22/20 08/22/20 08/22/20 10:31 11:27 15:12 POC Glucose 117 H 103 82 Blood Type Antibody Screen 08/22/20 08/22/20 08/22/20 19:44 22:02 23:08 POC Glucose 77 88 93 Blood Type Antibody Screen 08/23/20 08/23/20 08/23/20 00:49 02:13 04:47 POC Glucose 95 105 180 H Blood Type Antibody Screen Micro: Microbiology 08/22/20 07:40 Mucosa - Nose SARS-CoV-2 Antigen (Rapid) - Final Physical Exam Const alert and no apparent distress General Appearance: cooperative and comfortable Exam Limitations: no limitations HEENT normocephalic Eyes General Eye: normal appearance of both eyes Neck full ROM General: normal visual inspection Chest Chest: symmetrical chest wall rise Resp normal respiratory effort and normal air movement Effort and Inspection: symmetric chest movement Auscultation: clear to auscultation bilaterally Cardio regular rate and regular rhythm GI normal to inspection, nondistended, normoactive bowel sounds Back/Spine normal ROM Extremity full ROM and no calf tenderness General Extremity: normal exam except as noted Skin no rashes or lesions noted Neuro CN's II-XII intact bilaterally Psych mental status grossly normal Assessment & Plan (1) (spontaneous vaginal delivery): (2) Obesity, Class III, BMI 40-49.9 (morbid obesity): (3) Gestational diabetes requiring insulin: PLAN: PPD 1 Routine care Pain control support Anticipate discharge home tomorrow
[2020-08-24 04:04] VITALS: BP 112/57; PULSE 67; RESP 14; TEMP 36.3
[2020-08-24 04:08] VITALS: BP 112/57; PULSE 67
[2020-08-24 04:20] LABS: Bedside Glucose 79 mg/dL (70-110)
[2020-08-24 04:25] LABS: Hematocrit 30.6 % (37-47); Hemoglobin 9.6 g/dL (12.0-15.0); Mean Corp Hgb Conc 31.4 g/dL (32-36); Mean Corpuscular Hgb 26.7 pg (27.0-32.0); Mean Corpuscular Volume 85.2 fL (81-99); Mean Platelet Vol. 10.2 fl (6.2-12.0); Platelet Count 215 K/mm3 (150-450); RBC Distribution Width CV 13.2 % (11.6-14.6); RBC Distribution Width SD 40.8 fl (35.1-43.9); Red Blood Count 3.59 M/mm3 (4.2-5.4); White Blood Count 11.7 K/mm3 (4.4-11.0)
[2020-08-24 08:36] VITALS: BP 109/63; PULSE 90
[2020-08-24] MEDS: Acetaminophen 500 MG Tablet 1000 MG PO (08:54)
[2020-08-24 08:56] VITALS: BP 109/63; PULSE 90; RESP 18; TEMP 36.5
--- NOTE | 2020-08-24 09:52 | PCM.PROGNOTE ---
Subjective Subjective Doing well per patient and nursing staff. Ambulating and taking PO without difficulty. Voiding and passing flatus. Pain controlled. Objective Data Objective Data Vital Signs: Vital Signs Temp Pulse Resp BP Pulse Ox 97.7 F L 90 18 109/63 99 08/24/20 08:56 08/24/20 08:56 08/24/20 08:56 08/24/20 08:56 08/22/20 23:02 Oxygen Delivery Method Room Air Weight: 296 lb 8 oz Body Mass Index (BMI) 46.4 Intake & Output: Intake and Output for Last 24 Hours 08/22/20 08/23/20 08/24/20 23:59 23:59 23:59 Intake Total 3396.29 / 3396.29 3426.50 / 3426.50 Output Total 900 / 900 500 / 500 Balance 2496.29 / 2496.29 2926.50 / 2926.50 Lab / Micro Data Result Diagrams: 08/24/20 04:10 Labs: Laboratory Results - last 24 hr 08/24/20 08/24/20 04:09 04:10 WBC 11.7 H RBC 3.59 L Hgb 9.6 L Hct 30.6 L MCV 85.2 MCH 26.7 L MCHC 31.4 L RDW Std Deviation 40.8 RDW Coeff of [place] 13.2 Plt Count 215 MPV 10.2 POC Glucose 79 Micro: Microbiology 08/22/20 07:40 Mucosa - Nose SARS-CoV-2 Antigen (Rapid) - Final Physical Exam Const alert and oriented x3 General Appearance: cooperative Orientation / Consciousness: awake, oriented to person, oriented to place and oriented to time Exam Limitations: no limitations HEENT normocephalic Head and Scalp: normal to inspection, normocephalic and atraumatic Face and Sinus: normal facial exam Eyes General Eye: normal appearance of both eyes Neck full ROM Chest Chest: symmetrical chest wall rise Resp normal respiratory effort and normal air movement Auscultation: clear to auscultation bilaterally Cardio regular rate, regular rhythm, S1 normal heart sound, S2 normal heart sound, no murmurs, no rub, no gallops and no clicks GI normal to inspection, nondistended, normoactive bowel sounds and non-tender appearance of the vagina normal Bladder / Kidney Exam: no CVA tenderness Back/Spine normal ROM Extremity normal to inspection and full ROM Skin no rashes or lesions noted Neuro oriented x3, CN's II-XII intact bilaterally and moves all extremities Sensorium / Orientation: awake, alert and oriented to person Motor Exam: clonus absent Deep Tendon Reflexes: Rt Patellar (L4): 2+ and Lt Patellar (L4): 2+ Assessment & Plan Assessment/Plan (1) (spontaneous vaginal delivery): PLAN: 1) Routine instructions 2) Vitals stable 3) Follow up in 2 weeks and 6 weeks
--- NOTE | 2020-08-24 09:52 | PCM.DC ---
Discharge Instructions Diet Discharge Diet: No restrictions Activity Discharge Activity: Return to Normal Activity May resume sexual activity in: 6 weeks Weight Bearing Status: Full weight bearing Follow Up Care Test Results: Test results from this visit will be discussed in further detail at your follow-up appointment, if applicable. Discharge Plan Admission Admit Date/Time: 08/22/20 07:10 Primary Reason for Your Visit: Induction of Labor, Vaginal Delivery Attending Provider: Kellee Resendiz Primary Care Provider: Kirsty Fowler Instructions Forms: Information Patient Instructions: After a Vaginal , Vaginal : Your Experience Discharge Orders/Prescriptions Prescriptions: New naproxen 250 mg Tablet 500 mg PO Q12H PRN (Reason: Pain Score 1-3) Qty: 30 RF: 0 acetaminophen 500 mg Tablet 1,000 mg PO Q8H PRN PRN (Reason: Pain Score 1-3) Qty: 0 RF: 0 Continued vit no.[id number] 1 EACH tablet 1 ea PO DAILY RF: 0 Discontinued Humulin N NPH U-100 Insulin 100 unit/mL Suspension 14 unit SUBCUT QHS RF: 0 Referrals / Follow Up: Shannan Signer CNM [Certified Nurse Electron Tube Assembler] - Kirsty Fowler MD [Primary Care Provider] - Kellee Resendiz MD [STAFF PHYSICIAN] - See Referral Note (Follow up in 2 days for blood pressure check. Follow up in 2 weeks for virtual visit and 6 weeks for in office visit) Disposition Disposition (needs filled in before D/C Order can be placed): Home, self care
--- NOTE | 2020-08-24 12:02 | NURSING ---
late entry- ashish marsh was in and talked w pt regarding follow up- office will constact pt and have her be seen either this saturday or saturday for a bp check. then to have a virtual visit in 2 weeks and then office visit in 6 weeks.
== END 2020-08-24 12:30 | disposition home or self-care (01) | DRG 807 ==
PROVIDERS: Admitting Provider Obstetrics & Gynecology; PCP Internal Medicine; Visit Provider Obstetrics & Gynecology
DX: O24.424 Gestational diabetes mellitus in childbirth, insulin controlled (principal); Z37.0 Single live birth; O99.214 Obesity complicating childbirth; E66.01 Morbid (severe) obesity due to excess calories; O70.0 First degree perineal laceration during delivery; Z3A.39 39 weeks gestation of pregnancy
CPT/HCPCS: 59025; 59050; 82962; 85025; 85027; 86850; 86900; 86901; 87426; 99218; J7120; G0378; J2405

== ENCOUNTER 2023-11-18 16:08 | Emergency (ER) | payer MEDICAID, SELFPAY ==
[2023-11-18 16:08] VITALS: BP 139/75; PULSE 82; RESP 16; TEMP 36.8; O2SAT 99; BMI 38.0
--- NOTE | 2023-11-18 16:24 | ED.VIS.FEGU ---
HPI HPI - Female History of Present Illness Chief Complaint: Abd Pain PFSH PFSH Medical History Avulsion fracture of left ankle Left ankle pain Gestational diabetes History of use of contraceptive intrauterine device (IUD) History of migraine History of chlamydia Ectopic Home Medications ?Medication ?Instructions ?Recorded ?Last Taken ?Type acetaminophen 500 mg tablet 1,000 mg (2 x 500 mg) PO Q8H PRN 08/24/20 Unknown Rx PRN Pain Score 1-3 #0 tabs bupropion HCl 75 mg tablet 75 mg PO TID 08/29/23 Unknown History dextroamphetamine-amphetamine 5 mg 5 mg PO DAILY 08/29/23 Unknown History tablet (Adderall) norethindrone acetate 1.5 1 tab PO DAILY 08/29/23 Unknown History mg-ethinyl estradiol 30 mcg tablet (Junel) Allergy/AdvReac Type Severity Reaction Status Date / Time No Known Allergies Allergy Verified 11/18/23 16:29 Surgical History H/O gastric sleeve History of colonoscopy History of tonsillectomy History of placement of ear tubes Social History household members: spouse and children Smoking Status: Never smoker alcohol intake: never EXAM Physical Exam Const Vital Signs: 11/18/23 16:08 11/18/23 18:08 Temperature 98.2 F Temperature Source Temporal Pulse Rate 82 66 Respiratory Rate 16 16 Blood Pressure 139/75 H Blood Pressure Mean 96 Pulse Ox 99 98 Oxygen Delivery Method Room Air Room Air [facility] MDM Narrative Medical decision making narrative: HISTORY OF PRESENT ILLNESS: 27-year-old female presenting with right side abdominal pain. This started approximately 4 hours prior to arrival. Notes she is 5 weeks . Denies vaginal bleeding or leakage of any fluid. G4, P2 history of ectopic. Notes history of left-sided ectopic removal of ovary and fallopian tube. Notes pain today reminded her of this event. REVIEW OF SYSTEMS: Pertinent positives: Abdominal pain Pertinent negatives: Vaginal bleeding, syncope PHYSICAL EXAM: Nursing triage notes reviewed, Vital signs reviewed Constitutional: please see mdm HENT: MMM Eyes: Pupils equal round and reactive to light, Extraocular muscles intact Neck: No stridor, no JVD, full neck ROM Lungs: Clear to auscultation, No wheezing or rales. No increased work of breathing, no conversational dyspnea, no accessory muscle use, no nasal flaring. No respiratory distress noted Heart: Regular rate and rhythm, No murmurs, No rubs and No gallops, 2+ distal pulses (radial, femoral, posterior tibial) in all extremities Abdomen: Soft, there is no apparent elicited tenderness, rigidity, rebound or guarding, no obvious peritoneal signs, no palpable pulsatile abdominal masses, no auscultated abdominal bruit : No CVAT Extremities: No edema Neuro: No focal neurological deficits, cranial nerves II through XII intact, 5/5 strength in all extremities. Intact sensation to light touch in all extremities, 2+ reflexes bilateral patella tendons. Normal gait. No ataxia. Skin: No rash or lesions noted MEDICAL DECISION MAKING: Chief Complaint: Abdominal pain External records reviewed: Reviewed prior transvaginal ultrasound from December 2019 which showed a single live intrauterine gestation Factors affecting care: History of gestational diabetes Social determinants of health: none History obtained from others: none Consults: none [facility] Narrative: Patient was hemodynamically stable, afebrile and nontoxic-appearing. Exam without obvious peritoneal signs. I considered the following differential diagnosis: Ectopic present, miscarriage, early I obtained ultrasound, labs ALL IMAGES (IF OBTAINED) HAVE BEEN PERSONALLY REVIEWED AND INTERPRETED BY MYSELF. CBC without leukocytosis, severe anemia, no thrombocytopenia. hCG quant is 4637 Urine signs of slight inflammation, will send for culture and treat for asymptomatic bacteria O+ no need for RhoGAM Transvaginal ultrasound showed no evidence of obvious ectopic or miscarriage. Likely early gestation sac. Strict return precautions were discussed. Need for return if pain worsened as ectopic not completely ruled out was discussed with the patient. OB follow-up encouraged. diet instructions and vitamin instructions were given. The patient and/or family, caregivers express understanding. The patient and/or family, caregivers agrees with the plan. Shared decision making: I will have a discussion with the patient and or visitors regarding risk/benefits of further testing or admission. They will be made aware of of the risk/benefits inherent in this decision they will be given the opportunity to voice understanding. Total critical care time today provided was at least 0 minutes. This excludes separately billable procedures. Critical care time (if documented) is secondary to the patient having high probability of clinically significant/life threatening deterioration in the patient's condition which required my urgent intervention. Impression: 1. Abdominal pain 2. First trimester 3. Hx ofectopic Dispo: discharge home This note was generated with [employer] dictation software. It may contain incorrect words, spelling, and punctuation that were not noted in review of the chart prior to signing. Lab Data Labs: Laboratory Results - last 24 hr 11/18/23 16:40 WBC 8.7 RBC 4.30 Hgb 13.0 Hct 39.7 MCV 92.3 MCH 30.2 MCHC 32.7 RDW Std Deviation 40.9 RDW Coeff of [place] 12.0 Plt Count 260 MPV 10.4 Immature Gran % (Auto) 0.200 Neut % (Auto) 64.4 Lymph % (Auto) 25.6 Mccone % (Auto) 7.7 Eos % (Auto) 1.5 Baso % (Auto) 0.6 Absolute Neuts (auto) 5.6 Absolute Lymphs (auto) 2.22 Nucleated RBC % 0 HCG, Quant 4637 H Urine Color Yellow Urine Clarity Clear Urine pH 6.0 Ur Specific [place] 1.025 Urine Protein Negative Urine Glucose (UA) Normal Urine Ketones Negative Urine Occult Blood Negative Urine Nitrite Negative Urine Bilirubin Negative Urine Urobilinogen Normal Ur Leukocyte Esterase 100 H Urine RBC 0 SEEN Urine WBC 0-5 SEEN Ur Squamous Epith Cells 5-10 SEEN Amorphous Sediment 1+ Urine Bacteria 2+ Urine Mucus 0 SEEN Blood Type O POSITIVE Radiography Diagnostic Testing: Clinical Impression(s) from Imaging Studies Obstetrics Ultrasound 11/18/23 16:25 IMPRESSION: Probable very early gestational viability is not yet established. Recommend short interval follow-up. Electronically Signed: Ankur Craig MD at 18:21 EDT , Discharge Plan Triage Chief Complaint: Abd Pain Other Complaint: Female C/O ED Provider: Venu Bryant Dx/Rx/DC Orders Prescriptions: No Action bupropion HCl 75 mg tablet 75 mg PO TID Rx Instructions: administer 6 hours apart dextroamphetamine-amphetamine [Adderall] 5 mg tablet 5 mg PO DAILY norethindrone ac-eth estradiol [Junel (21)] 1.5-30 mg-mcg tablet 1 tab PO DAILY acetaminophen 500 mg Tablet 1,000 mg PO Q8H PRN PRN (Reason: Pain Score 1-3) Qty: 0 0RF Primary Care Provider: Kirsty Fowler Referrals: Kirsty Fowler MD [Primary Care Provider] - Print Language: Russian
--- NOTE | 2023-11-18 16:25 | US_ITS ---
STUDY: FIRST TRIMESTER OBSTETRICAL ULTRASOUND REASON FOR EXAM: Female, 27 years old Lower abdominal pain rule out ectopic LMP: 10/16/2023 TECHNIQUE: Transvaginal TECHNICAL QUALITY: Adequate. PRIOR ULTRASOUND: None. FINDINGS: There is visualization of a single gestational sac in a normal intrauterine position. The mean sac diameter (MSD) measures 1.0, indicating an estimated gestational age (EGA) of 5 weeks, 5 days. The gestational sac shape is within normal limits. There is no demonstrated yolk sac. The placenta is non-visualized. There is no demonstrated embryo ( pole). The estimated gestation age (EGA) by LMP is 4 weeks, 5 days. The estimated date of delivery (ABILIO) by LMP is 07/22/2024. The estimated gestation age (EGA) by US is 5 weeks or less. The uterus measures 10.0 x 4.6 x 4.8 cm. There is no demonstrated uterine fibroid. The cervix is closed. The right ovary measures 4.6 x 3.0 x 3.2 cm. Cystic structures in the right ovary/adnexa measure 1.7 and 2.5 cm. There is no visualized right adnexal mass or complex lesion. The left ovary has been removed. There is minimal fluid in the cul de sac. US/Transvaginal w/Preg US IMPRESSION: Probable very early gestational viability is not yet established. Recommend short interval follow-up. Electronically Signed: Ankur Craig MD at 18:21 EDT ,
[2023-11-18 16:50] LABS: Mucous, Urine 0 SEEN /hpf (<or=2+); Red Blood Cells-Urine 0 SEEN /hpf (0-5)
[2023-11-18 16:52] LABS: Absolute Lymphocyte Count 2.22 X10^3/uL (0.83-4.51); Absolute Neutrophil Count 5.6 X10^3/uL (2.0-7.7); Basophil# 0.05 X10^3/uL; Basophil% 0.6 % (0-1); Eosinophil# 0.13 X10^3/uL; Eosinophils% 1.5 % (0-5); Hematocrit 39.7 % (37-47); Lymphocyte # 2.22 X10^3/ul (0.83-4.51); Lymphocyte % 25.6 % (19-41); Mean Corp Hgb Conc 32.7 g/dL (32-36); Mean Corpuscular Hgb 30.2 pg (27.0-32.0); Mean Corpuscular Volume 92.3 fL (81-99); Mean Platelet Vol. 10.4 fl (6.2-12.0); Monocyte# 0.67 X10^3/uL; Monocyte% 7.7 % (0-10); NRBC Flagged by Analyzer 0 % (0-5); Neutrophil # 5.57 X10^3/uL (2.7-7.7); Neutrophil % 64.4 % (47-70); Platelet Count 260 K/mm3 (150-450); RBC Distribution Width SD 40.9 fl (35.1-43.9); White Blood Count 8.7 K/mm3 (4.4-11.0)
[2023-11-18 16:57] LABS: Color, Urine Yellow (Yellow); Glucose, Dipstick Normal (Normal); Ketone-Dipstick Negative (Negative); Leukocyte Esterase-Dipstick 100 /ul (Negative); Nitrite-Dipstick Negative (Negative); Occult Blood-Urine Negative /ul (Negative); Protein-Dipstick Negative (Negative); Specific Gravity, Urine 1.025 (1.002-1.030); Urine Bilirubin Dipstick Negative (Negative); Urine Clarity Clear (Clear); Urine Urobilinogen Normal (Normal)
[2023-11-18 17:14] LABS: Amorphous Sediment 1+; Bacteria 2+ /hpf (None Seen); Squamous Epithelial Cells - UA 5-10 SEEN /hpf (5-10); White Blood Cells 0-5 SEEN /hpf (0-5)
[2023-11-18 17:30] LABS: hCG Titer Quant., Serum 4637 mIU/mL (1-3)
[2023-11-18 18:08] VITALS: PULSE 66; RESP 16; O2SAT 98
[2023-11-18] MEDS: 0.9% Normal Saline (500mL Bag) 500 ML 999 ML IV (18:42)
== END 2023-11-18 20:20 | disposition home or self-care (01) ==
PROVIDERS: Emergency Provider Emergency Medicine; PCP Internal Medicine; Visit Provider Emergency Medicine
DX: O26.891 Other specified pregnancy related conditions, first trimester (principal); R10.9 Unspecified abdominal pain; R82.71 Bacteriuria; O09.11 Supervision of pregnancy with history of ectopic pregnancy, first trimester; Z3A.01 Less than 8 weeks gestation of pregnancy; Z79.899 Other long term (current) drug therapy
CPT/HCPCS: 76817; 81001; 84702; 85025; 86900; 86901; 87086; 87088; 96360; 96361; 99285; J7030; A4216

== ENCOUNTER 2023-11-22 12:48 | Day surgery (SDC) | payer MEDICAID, SELFPAY ==
[2023-11-22] VITALS (18 sets, daily range): BP systolic 107–131; BP diastolic 64–84; PULSE 53–75; RESP 14–20; TEMP 36.1–36.8; O2SAT 93–100; BMI 37.9
--- NOTE | 2023-11-22 13:34 | US_ITS ---
We are attempting to reach an attending provider to discuss findings. An addendum with communication details will be sent when the communication is complete. INDICATION: vaginal bleed -- miscarriage? r/o POC EXAMINATION: Ultrasound US OB Transvaginal TECHNIQUE: Transvaginal and transabdominal ultrasound was performed. Grayscale, spectral waveform, and color flow Doppler evaluation of the adnexa. COMPARISON: Ultrasound 11/18/2023 LMP: 09/16/2023 FINDINGS: Uterus measures 9.8 cm in length. Normal configuration. No gestational sac identified within the endometrial canal. Small fluid collection noted in the endometrial canal. This collection is relatively flattened and elongated configuration compared to the prior. Right ovary: 4.4 x 3.8 x 3.7 cm. Small cyst, 2.5 x 1.5 x 2.1 cm, and complex cyst: 3.1 x 2.8 x 3.1 cm. Complex mass adjacent to the right ovary measures 3.8 x 2.7 x 3.3 cm with a small hypoechoic focus centrally. Not present on the prior. No pole or yolk sac identified within this structure. Left ovary: 3.5 x 2.0 x 2.3 cm with small follicles. The ovaries appear unremarkable with vascular flow demonstrated. Small amount of free fluid in the cul-de-sac. US/Transvaginal w/Preg US IMPRESSION: Right adnexal complex mass suspicious for ectopic . No evidence of intrauterine . Small endometrial fluid collection possibly a pseudocyst of ectopic . Small amount of free fluid. Electronically Signed: Stella Mayo MD at 16:22 EDT ,
--- NOTE | 2023-11-22 14:00 | ED.VIS.FEGU ---
HPI HPI - Female History of Present Illness Chief Complaint: Vag Bld, Preg Informant: patient Narrative Narrative: G4, P2 5 weeks gestation by ultrasound presents increasing vaginal bleeding since 7 AM. Going through 2 pads soaked per hour with clots. Increased cramping lower abdomen. Was seen 3 days ago due to cramping came to ED diagnosed with intrauterine . She had an ectopic in 2019 with left salpingectomy with oophorectomy followed by Dr. Kellee Resendiz [facility] [place]. Reports increased lightheaded symptoms or for came to the ED. Records no blood type O+. Prior similar symptoms: No PFSH PFSH Medical History Avulsion fracture of left ankle Left ankle pain Gestational diabetes History of use of contraceptive intrauterine device (IUD) History of migraine History of chlamydia Ectopic Home Medications ?Medication ?Instructions ?Recorded ?Last Taken ?Type acetaminophen 500 mg tablet 1,000 mg (2 x 500 mg) PO Q8H PRN 08/24/20 Unknown Rx PRN Pain Score 1-3 #0 tabs bupropion HCl 75 mg tablet 75 mg PO TID 08/29/23 Unknown History dextroamphetamine-amphetamine 5 mg 5 mg PO DAILY 08/29/23 Unknown History tablet (Adderall) norethindrone acetate 1.5 1 tab PO DAILY 08/29/23 Unknown History mg-ethinyl estradiol 30 mcg tablet (Junel) cephalexin 500 mg capsule 500 mg PO TID #15 caps 11/18/23 Unknown Rx Allergy/AdvReac Type Severity Reaction Status Date / Time No Known Allergies Allergy Verified 11/22/23 12:48 Family History no significant family his Surgical History H/O gastric sleeve History of colonoscopy History of tonsillectomy History of placement of ear tubes Social History household members: spouse and children Smoking Status: Never smoker alcohol intake: never ROS ROS ED Constitutional Constitutional ED: Denies chills, fever(s) or sweats Eyes Eyes: Denies change in vision ENT ENT ED: Denies dysphagia or sore throat Cardiovascular Cardiovascular: Denies chest pain, leg edema, palpitations or racing heartbeat Respiratory/Chest Respiratory/Chest: Denies cough, dyspnea or dyspnea on exertion Gastrointestinal Gastrointestinal: Denies abdominal pain, diarrhea, nausea or vomiting Genitourinary Genitourinary ED: Reports other Details: Vaginal bleeding with clots, pelvic cramping ; Denies dysuria, hematuria or urinary frequency Musculoskeletal Musculoskeletal: Denies back pain, extremity pain or neck pain Integumentary Denies rash or wounds Neurologic Neurologic: Denies headache(s), paresthesias or weakness EXAM Physical Exam Const Vital Signs: 11/22/23 12:48 11/22/23 12:48 11/22/23 13:48 Temperature 97 F L 98.0 F 98.0 F Temperature Source Temporal Temporal Temporal Pulse Rate 75 61 61 Respiratory Rate 14 16 16 Respiratory Pattern Blood Pressure 113/81 H 118/70 Blood Pressure Mean 91 86 Blood Pressure Source Blood Pressure Position Blood Pressure Location Baseline BP Pulse Ox 98 93 94 Oxygen Delivery Method Room Air Room Air 11/22/23 14:00 11/22/23 15:00 11/22/23 15:30 Temperature Temperature Source Pulse Rate 63 63 Respiratory Rate 16 16 Respiratory Pattern Blood Pressure 110/78 112/70 107/83 H Blood Pressure Mean 88 84 91 Blood Pressure Source Blood Pressure Position Blood Pressure Location Baseline BP Pulse Ox 98 99 Oxygen Delivery Method Room Air Room Air 11/22/23 16:00 11/22/23 17:00 11/22/23 17:04 Temperature 98.2 F 98.2 F Temperature Source Oral Oral Pulse Rate 65 65 66 Respiratory Rate 16 16 16 Respiratory Pattern Blood Pressure 126/84 H 127/77 H 127/77 H Blood Pressure Mean 98 93 93 Blood Pressure Source Monitor Blood Pressure Position Semi-Fowlers Blood Pressure Location Left Arm Baseline BP Pulse Ox 100 100 100 Oxygen Delivery Method Room Air Room Air Room Air 11/22/23 18:00 11/22/23 18:25 11/22/23 18:55 Temperature 98.2 F 98.2 F Temperature Source Pulse Rate 61 62 62 Respiratory Rate 18 20 H 20 H Respiratory Pattern Blood Pressure 129/77 H 129/77 H 129/77 H Blood Pressure Mean 94 94 Blood Pressure Source Blood Pressure Position Blood Pressure Location Baseline BP Pulse Ox 96 98 98 Oxygen Delivery Method Room Air 11/22/23 20:05 11/22/23 20:09 11/22/23 20:10 Temperature 97.6 F L 97.6 F L Temperature Source Temporal Pulse Rate 61 63 58 L Respiratory Rate 16 14 16 Respiratory Pattern Normal Blood Pressure 122/76 H 119/65 119/65 Blood Pressure Mean 91 83 Blood Pressure Source Monitor Monitor Blood Pressure Position Semi-Fowlers Semi-Fowlers Blood Pressure Location Right Arm Right Arm Baseline BP 127/77 127/77 Pulse Ox 98 98 97 Oxygen Delivery Method Room Air Room Air 11/22/23 20:15 11/22/23 20:20 11/22/23 20:30 Temperature 97.1 F L Temperature Source Temporal Pulse Rate 58 L 53 L 60 Respiratory Rate 16 16 16 Respiratory Pattern Blood Pressure 112/64 111/64 131/65 H Blood Pressure Mean 80 79 87 Blood Pressure Source Monitor Monitor Blood Pressure Position Semi-Fowlers Semi-Fowlers Blood Pressure Location Right Arm Right Arm Baseline BP 127/77 127/77 127/77 Pulse Ox 98 99 99 Oxygen Delivery Method Room Air Room Air Room Air 11/22/23 20:33 11/22/23 20:49 Temperature 97.1 F L Temperature Source Temporal Pulse Rate 61 Respiratory Rate 16 Respiratory Pattern Normal Blood Pressure 130/74 H Blood Pressure Mean 92 Blood Pressure Source Monitor Blood Pressure Position Semi-Fowlers Blood Pressure Location Right Arm Baseline BP 127/77 Pulse Ox 100 Oxygen Delivery Method Room Air Positive well nourished and well developed General Appearance ED: well developed and NAD HEENT Reports moist mucous membranes normocephalic and atraumatic Eyes EOMs intact bilaterally and conjunctivae normal General Eye ED: Yes normal appearance of both eyes Neck no lymphadenopathy and supple General: Negative for tenderness Chest Wall Chest: Negative for tenderness Resp normal respiratory effort and normal air movement Effort and Inspection: symmetric chest movement; Negative for respiratory distress Cardio regular rate, regular rhythm and no murmurs Peripheral Pulses: pulses 2+ throughout GI normal to inspection, nondistended, normoactive bowel sounds and non-tender Palpation: Negative for guarding or rebound tenderness present Narrative: Mild pelvic tenderness no guarding or rebound. Speculum exam performed with nursing brush maker there is blood coming from the os there is no clots there is minimal blood in the vault. This was removed with Q-tip. Back/Spine no CVA tenderness and no thoracic nor lumbar tenderness Extremity normal to inspection General Extremety ED: Negative for edema or tenderness General Extremity: Negative for edema Neuro oriented x3 and no sensory deficits noted Sensorium / Orientation: awake and alert Skin no rashes or lesions noted and no wounds MDM MDM MDM Narrative Medical decision making narrative: Interventions / MDM: Differential diagnosis: Active miscarriage, vaginal bleeding, ectopic Diagnosis considered but do not suspect: N/A My EKG interpretation: N/A Imaging independently reviewed and interpreted by myself: Transvaginal ultrasound: Discussion with radiologist, her initial cyst in the intrauterine sac is currently not there. There is a new right complex adnexal mass up to 3.3 cm concerning for ectopic . External documents reviewed: N/A Test considered but not ordered:N/A ED course: Patient increasing vaginal bleeding Since this morning. IV established. O positive from records. H&H sent, hCG quant. Pelvic exam bleeding minimally from the os there is no clots. She sent for a repeat transvaginal ultrasound. H&H hemoglobin 13.1 hCG 9700 has more than doubled since 3 days ago. She was initially treated with morphine for pain. Pain returned after returning from ultrasound. Reported there is transient blood pressure of 70s that improved. Likely vasovagal. Blood pressure systolic 120s. Started on fluids additional pain medicine of fentanyl Zofran due to vomiting. Results of ultrasound discussion with radiologist concerning for a new right adnexal mass concerning for ectopic . Discussed likely cysts cysts and the gestational sac seen 3 days ago. 1640: I discussed with covering physician for Dr. Jose Mckeon findings and concerns. She will come the ED to evaluate the patient. She will be kept NPO. She is seen by OB, she was taken to the OR from the ED. Re-evaluation: stable Disposition discussed with patient/family/significant other: Patient Case discussed with consulting clinician: OB This note was generated with [employer] dictation software. It may contain incorrect words, spelling, and punctuation that were not noted in checking the note before signing. Lab Data Attestation: I reviewed the patient's lab results. Labs: Laboratory Results - last 24 hr 11/22/23 14:00 Hgb 13.1 Hct 39.4 HCG, Quant 9727 H Radiography Diagnostic Testing: Clinical Impression(s) from Imaging Studies Obstetrics Ultrasound 11/22/23 13:34 IMPRESSION: Right adnexal complex mass suspicious for ectopic . No evidence of intrauterine . Small endometrial fluid collection possibly a pseudocyst of ectopic . Small amount of free fluid. Electronically Signed: Stella Mayo MD at 16:22 EDT , ADDENDUM: 11/22/23 1631 IMPRESSION: Right adnexal complex mass suspicious for ectopic . No evidence of intrauterine . Small endometrial fluid collection possibly a pseudocyst of ectopic . Small amount of free fluid. N.B. : The above Results were Read Back by Stella Mayo MD to Khadar Rogers DO, and understanding confirmed on 11/22/2023 16:24:59 (ET). Electronically Signed: Stella Mayo MD at 16:22 EDT , Discharge Plan Dx/Rx/DC Orders Clinical Impression: , ectopic, First trimester , Abnormal vaginal bleeding, Pelvic pain Disposition Disposition: Acute Care Hospital [facility] Discharge Date/Time: 11/22/23 18:26
[2023-11-22 14:14] LABS: Hematocrit 39.4 % (37-47); Hemoglobin 13.1 g/dL (12.0-15.0)
[2023-11-22] MEDS: Morphine 4 MG/ML Syringe IV (14:33)
[2023-11-22] MEDS: Ondansetron 4 MG/2 ML Vial IV ×2 (14:33→16:23)
[2023-11-22 14:47] LABS: hCG Titer Quant., Serum 9727 mIU/mL (1-3)
--- NOTE | 2023-11-22 15:20 | ED.RN ---
ultrasound found this rn and states she believes there may be an ectopic on the right side. primary nurse notified and Dr. Fitzgerald
[2023-11-22] MEDS: fentaNYL 100 MCG/2 ML Ampul 25 MCG IV (16:23)
[2023-11-22] MEDS: 0.9% Normal Saline (1000mL) 1,000 ML 999 ML IV (16:27)
[2023-11-22] MEDS: fentaNYL 100 MCG/2 ML Ampul 50 MCG IV (17:40)
--- NOTE | 2023-11-22 17:45 | PCM.HP.OB ---
HPI - General General Date of Admission: 11/22/23 Date of Service: 11/22/23 Chief Complaint: Pelvic pain, early HPI Narrative BRANNON STLIES, is a 27 F who presents with positive HCG and no IUP. Right adnexa with suspicious mas not present 3 days ago. Increasing right sided pain. History of previous ectopic. Reviewed findings with patient. She desires no future pregnancies. Does not want methotrexate if there is a possibility if may not work. Consented for laparoscopy possible RSO. Maternal Data Information Gestational age: 5 weeks by LMP [facility] Medical History Avulsion fracture of left ankle Left ankle pain Gestational diabetes History of use of contraceptive intrauterine device (IUD) History of migraine History of chlamydia Ectopic Home Medications ?Medication ?Instructions ?Recorded ?Last Taken ?Type acetaminophen 500 mg tablet 1,000 mg (2 x 500 mg) PO Q8H PRN 08/24/20 Unknown Rx PRN Pain Score 1-3 #0 tabs bupropion HCl 75 mg tablet 75 mg PO TID 08/29/23 Unknown History dextroamphetamine-amphetamine 5 mg 5 mg PO DAILY 08/29/23 Unknown History tablet (Adderall) norethindrone acetate 1.5 1 tab PO DAILY 08/29/23 Unknown History mg-ethinyl estradiol 30 mcg tablet (Junel) cephalexin 500 mg capsule 500 mg PO TID #15 caps 11/18/23 Unknown Rx Allergy/AdvReac Type Severity Reaction Status Date / Time No Known Allergies Allergy Verified 11/22/23 12:48 Family History no significant family his Surgical History H/O gastric sleeve History of colonoscopy History of tonsillectomy History of placement of ear tubes Social History household members: spouse and children Smoking Status: Never smoker alcohol intake: never History Elective abortions Hx Para 1 Spontaneous abortions Hx # Term Pregnancies Ectopic pregnancies Hx # Pregnancies Multiple births # of living children ROS Constitutional Constitutional: Denies fatigue, fever(s) or malaise ENT HEENT: Denies dizziness or headache(s) Cardiovascular Cardiovascular: Denies chest pain, dyspnea or lightheadedness Respiratory/Chest Respiratory/Chest: Denies cough or dyspnea Gastrointestinal Gastrointestinal: Reports abdominal pain and nausea Integumentary Integumentary: Denies rash Neurologic Neurologic: Denies dizziness or headache(s) Psychiatric Psychiatric: Denies depression Vital Signs Vital Signs Vital Signs: 11/22/23 12:48 11/22/23 12:48 11/22/23 13:48 Temperature 97 F L 98.0 F 98.0 F Temperature Source Temporal Temporal Temporal Pulse Rate 75 61 61 Respiratory Rate 14 16 16 Blood Pressure 113/81 H 118/70 Blood Pressure Mean 91 86 Blood Pressure Source Blood Pressure Position Blood Pressure Location Pulse Ox 98 93 94 Oxygen Delivery Method Room Air Room Air 11/22/23 14:00 11/22/23 15:00 11/22/23 15:30 Temperature Temperature Source Pulse Rate 63 63 Respiratory Rate 16 16 Blood Pressure 110/78 112/70 107/83 H Blood Pressure Mean 88 84 91 Blood Pressure Source Blood Pressure Position Blood Pressure Location Pulse Ox 98 99 Oxygen Delivery Method Room Air Room Air 11/22/23 16:00 11/22/23 17:00 11/22/23 17:04 Temperature 98.2 F 98.2 F Temperature Source Oral Oral Pulse Rate 65 65 66 Respiratory Rate 16 16 16 Blood Pressure 126/84 H 127/77 H 127/77 H Blood Pressure Mean 98 93 93 Blood Pressure Source Monitor Blood Pressure Position Semi-Fowlers Blood Pressure Location Left Arm Pulse Ox 100 100 100 Oxygen Delivery Method Room Air Room Air Room Air Weight Weight: 109.9 kg Body Mass Index (BMI) 37.9 Physical Exam Const alert and oriented x3 General Appearance: cooperative HEENT normocephalic Head and Scalp: atraumatic Eyes PERRL Neck full ROM Resp normal respiratory effort GI Palpation: tender Extremity normal to inspection Skin no rashes or lesions noted Neuro moves all extremities and no focal motor deficits Psych mental status grossly normal Labs Labs Labs: Blood Type O POSITIVE Antibody Screen NEGATIVE Hct 39.4 % (37-47) Hgb 13.1 g/dL (12.0-15.0) Obstetrics Ultrasound Rhogam given: No Assessment & Plan (1) , ectopic: QUALIFIERS: Location of ectopic : ovarian Intrauterine status: without intrauterine Laterality: right Qualified Code(s): O00.201 - Right ovarian without intrauterine PLAN: Plan Laparoscopy removal of ectopic , possible Salpingectomy, possible oophorectomy. Previous LSO for ectopic . Aware she will lose fertility if tube removed
--- NOTE | 2023-11-22 18:54 | PRE.ANES_ITS ---
ASA Classification* ASA Classification ASA Classification: 3 (bmi>38) and E Assessment & Plan Anesthesia* Anesthesia Assessment Anesthesia Assessment: Discussed sedation and/or anesthesia options, risks, benefits, and alternatives with patient/parents/legal guardian/POA. Questions invited. The patient/parents/legal guardian/POA seems to understand and agrees to proceed with anesthesia plan. Reviewed the physical assessment, medical history, allergy history and patient home medications list prior to surgery/procedure/anesthetic and documented any changes. Performed airway and anesthesia risk assessments. Anesthesia Type Anesthesia Type: General Anesthesia Focused Assessment* Temperature: 98.2 F Pulse Rate: 62 Blood Pressure: 129/77 Respiratory Rate: 20 Pulse Ox: 98 Airway Assessment Mouth opens: >3 cm Mallampati Score: II Focused Labs Anesthesia Preop lab: CBC WBC 8.7 K/mm3 (4.4-11.0) 11/18/23 16:40 RBC 4.30 M/mm3 (4.2-5.4) 11/18/23 16:40 Hgb 13.1 g/dL (12.0-15.0) 11/22/23 14:00 Hct 39.4 % (37-47) 11/22/23 14:00 Plt Count 260 K/mm3 (150-450) 11/18/23 16:40 CHEMISTRY Potassium 3.9 mmol/L (3.5-5.1) 01/13/20 16:25 Sodium 134 mmol/L (136-145) L 01/13/20 16:25 Magnesium 2.2 mg/dL (1.6-2.6) 01/13/20 16:25 BUN 10 mg/dL (7-18) 01/13/20 16:25 Creatinine 0.81 mg/dL (0.55-1.02) 01/13/20 16:25 Glucose 82 mg/dL (74-106) 01/13/20 16:25 POC Glucose 79 mg/dL (70-110) 08/24/20 04:09 COAG HCG, Quant 9727 mIU/mL (1-3) H 11/22/23 14:00 Pre-Assessment Diagnosis/Proposed Procedure Planned Operative Procedure(s): ectopic preg Anesthesia History Anesthesia History - early childhood services coordinator: Anesthesia History - early childhood services coordinator Hx Hospitalization Any Problems With Anesthesia No 11/22/23 17:04 Cholinesterase deficiency No 11/22/23 17:04 You/Your Family Experience No 11/22/23 17:04 fever (hyperthermia) with Relationship Recent Exposure to Contagious No 11/22/23 17:04 Disease Does patient have nerve No 11/22/23 17:04 stimulator Patient instructed to have No 11/22/23 17:04 device shut off --Does patient have Pacemaker No 11/22/23 17:04 or ICD? When Was Last Pacemaker Check QUESTION #4 FULL TEXT: You/Your Family Experience fever (hyperthermia) with Anesthesia Last Oral Intake Last Oral intake: Last Oral Intake NPO since 07:00 11/22/23 17:04 Meds taken in AM with sips of No 11/22/23 17:04 water? Meds patient instructed to take am of surgery PONV PONV - early childhood services coordinator: PONV - early childhood services coordinator Female HX of Motion Sickness HX of N/V After Surgery Non-Smoker Duration of Surgery greater than 60 minutes Number of Risk Factors PONV Score Height & Weight Height & Weight: Anesthesia: Height & Weight Height 5 ft 7 in 11/22/23 17:04 Weight: 109.9 kg 11/22/23 17:04 Body Mass Index (BMI) 37.9 11/22/23 17:04 Respiratory Assessment Respiratory Assessment - early childhood services coordinator: Respiratory Tract Infection Hx - early childhood services coordinator Hx Respiratory Tract Infection No 11/22/23 17:04 STOP Sleep Apnea STOP Sleep Apnea - early childhood services coordinator: STOP Sleep Apnea - early childhood services coordinator Hx Hypertension No 11/22/23 17:04 Hx Sleep Apnea Yes 11/22/23 17:04 CPAP Yes: USES OCCASSIONALLY 11/22/23 17:04 BIPAP No 11/22/23 17:04 Do you snore loudly (louder than talking or can be heard Do you often feel tired/ fatigued/ sleepy during daytime? Has anyone observed you stop breathing during sleep? STOP Results Positive 11/22/23 17:04 QUESTION #5 FULL TEXT : Do you snore loudly (louder than talking or can be heard through closed doors)? 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 Specify any problems Hx of Preganancy in last 3 Months Nurse Filling Out Transfusion & Questions: Date: Time: Patient unable to answer at this time (ie. confused, unrespo /Reproduction History /Reproductive History - early childhood services coordinator: /Reproductive Hx- early childhood services coordinator Hx Now Yes 11/22/23 17:04 Gestational Age (in weeks): EDC: Hx 2 11/22/23 12:48 Hx Para Hx Section SAB No 11/22/23 17:04 PFSH Medical History Avulsion fracture of left ankle Left ankle pain Gestational diabetes History of use of contraceptive intrauterine device (IUD) History of migraine History of chlamydia Ectopic Home Medications ?Medication ?Instructions ?Recorded ?Last Taken ?Type acetaminophen 500 mg tablet 1,000 mg (2 x 500 mg) PO Q8H PRN 08/24/20 Unknown Rx PRN Pain Score 1-3 #0 tabs bupropion HCl 75 mg tablet 75 mg PO TID 08/29/23 Unknown History dextroamphetamine-amphetamine 5 mg 5 mg PO DAILY 08/29/23 Unknown History tablet (Adderall) norethindrone acetate 1.5 1 tab PO DAILY 08/29/23 Unknown History mg-ethinyl estradiol 30 mcg tablet (Junel) cephalexin 500 mg capsule 500 mg PO TID #15 caps 11/18/23 Unknown Rx Allergy/AdvReac Type Severity Reaction Status Date / Time No Known Allergies Allergy Verified 11/22/23 12:48 Family History no significant family his Surgical History H/O gastric sleeve History of colonoscopy History of tonsillectomy History of placement of ear tubes Social History household members: spouse and children Smoking Status: Never smoker alcohol intake: never Review of Systems (Anesthesia) ROS Narrative System reviewed and no additional complaints, except as documented.
--- NOTE | 2023-11-22 19:00 | EMB_PTH ---
PATIENT: BRANNON STILES LOC: [facility] – [place] U#:[id number] AGE/SX: 27/F ROOM: RE11/22/[address]: Dr. Neva Garcia MD : 1995 BED: DIS: 11/22/2023 SPEC #: [id number] RECD: 11/25/23 12:40 STATUS: HEATH REGenaro #: [id number] ASHWINI: 11/22/23 19:[address]: Neva Garcia DEPT: SURGICAL PATHOLOGY RECD BY: Miriam Davis ENTERED: 11/25/23 13:22 SP TYPE: ENDOM BX/C BECCA DR: Dr. Kirsty Fowler MD Tissues: A - Endometrium, NOS B - ECTOPIC PREG Procedures: Surgery Specimen Level IV HEADER OPERATION: Laparoscopic removal ectopic , right salpingectomy PRE-OP DIAGNOSIS: , ectopic TISSUE SUBMITTED: A- Endometrial curettings, B- Right fallopian tube and ectopic MICROSCOPIC DIAGNOSIS A. Endometrial curettings: decidua and gestational endometrium. See comment. B. Right fallopian tube and ectopic , salpingectomy: Fallopian tube with decidua, immature chorionic villi and blood clots (ectopic ). RUSS/ 11/26/2023 COMMENT A. Chorionic villi are not identified. Entire specimen is examined. MICROSCOPIC DESCRIPTION Slides are reviewed. GROSS DESCRIPTION A. Received in fixative is one container labeled with the patient's name and designated Endometrial curettings. The specimen consists of multiple irregular fragments of hemorrhagic soft tissue that in aggregate measure 7.5 x 3.0 x 0.3 cm. The specimen is totally submitted in three cassettes. B. Received in fixative is one container labeled with the patient's name and designated Right fallopian tube and ectopic . The specimen consists of a fallopian tube measuring 7.0cm in length and up to 2.0cm in diameter. Fimbrial end is not identified. Blood clot is noted at the distal end. Also present in the container are multiple fragments of blood clot measuring in aggregate 2.5 x 2.5 x 0.8cm. Sections of the fallopian tube reveal that the lumen is filled with blood clot. tissue is not identified. Building Construction Superintendent sections are submitted in five cassettes. Orestes 11/25/2023 TC:5 CPT:32690i5
[2023-11-22] MEDS: Bupivacaine 0.25% 30 ML Vial (19:50)
--- NOTE | 2023-11-22 19:55 | PCM.OPRPT ---
Problems Associated Problem List Diagnoses (1) , ectopic: Report of Operation Date of Procedure: 11/22/23 Pre-Operative Diagnosis: Right ectopic Post-Operative Diagnosis: Same Surgery/Procedure Performed:: Laparoscopy right salpingectomy with removal of ectopic , D&C Description of Surgical Findings:: 150 cc of blood and clot in pelvis. Ectopic located in distal right fallopian tube. Surgeon: Neva Garcia graphics production specialist: Taina Marin Type of Anesthesia: General and Local Anesthesiologist: James Stewart Specimen's removed: right tube Estimated Blood Loss (mL): 25 cc Description of Procedure: Patient was taken to the OR with IV fluids running. She was placed on the OR table in a dorsal supine position. Anesthesia was induced. She was then placed in a dorsal lithotomy position and prepped and draped in the normal sterile fashion. Her bladder was drained with a straight cath. A speculum was placed in the posterior vagina and the cervix grasped with a single tooth tenaculum. The uterus sounded to 9 cm. The cervix was dilated and the cavity sharply curetted for a small amount of tissue. A uterine manipulator was placed. Attention was turned to the abdomen. The umbilicus was injected with Marcaine and a 5 mm incision was made with a scalpel. A Veress needle was placed into the peritoneal cavity. CO2 was used to created a pneumoperitoneum. A 5mm Optiview was placed into the peritoneal cavity under direct visualization. She was then placed in Trendelenburg. The pelvic was inspected and found to have approximately 100 cc of blood in the pelvis. The right tube was distended with the ectopic . The right and left ovary were normal. The left tube was absent from a previous ectopic . Right and left lower quadrant ports were placed. The pelvis was irrigated. The right tube was elevated and the LigaSure used to excise the right tube along the mesosalpinx. Hemostasis was obtained. The tube was removed with an EndoCatch bag. The pelvis was copiously irrigated to remove remaining blood and clot. A few posterior cul de sac adhesions were removed with the LigaSure. The peritoneal cavity was otherwise free of adhesions. The pneumoperitoneum was released and the ports removed. The incision were repaired with 4-0 Vicryl. The uterine manipulator was removed. The patient was cleaned up and anesthesia reversed. She was taken to the PACU in stable condition. Procedure Start Time: 18:38 Procedure Stop Time: 20:18 Complications none Admit VTE Documentation VTE Present on Admission: No VTE Mechan Device Prophylaxis: SCD's VTE Pharm Prophylaxis ordered?: No Reason prophylaxis not ordered:: Treatment Not Indicated
--- NOTE | 2023-11-22 20:09 | PCM.POST.ANE ---
Anesthesia: Postop Eval I Current Vital Signs Temperature: 97.6 F Pulse Rate: 63 Blood Pressure: 119/65 Respiratory Rate: 14 Pulse Ox: 98 Assessment Airway patent: Yes Spontaneous unlabored respirations: Yes nausea: No Vomiting: No Anesthesia Complication: No Fluid Hydration Crystalloid volume administer (ml): 1,000 Total IV fluid infused: 1,000 Progress Note Anesthesia document: Postop Eval 1 completed: Yes
--- NOTE | 2023-11-22 20:10 | PCM.POSTANE2 ---
Anesthesia Postop Eval I Sum Postop Eval Completion status Anesthesia document: Postop Eval 1 completed: Yes Anesthesia Postop Eval I Summary Anesthesia Postop Eval I Summary: Anesthesia Postop Eval I: Assessment Summary Airway patent Yes 11/22/23 20:09 Spontaneous unlabored Yes 11/22/23 20:09 respirations Mental status nausea No 11/22/23 20:09 Vomiting No 11/22/23 20:09 Anesthesia Postop Eval I: Fluid Summary Crystalloid volume administer 1,000 11/22/23 20:09 (ml) Colloids volume administered ( ml) Blood Product volume administered (ml) Total IV fluid infused 1,000 11/22/23 20:09 Anesthesia Postop Eval I: Summary Notes Anesthesia Complication No 11/22/23 20:09 Anesthesia Complication Comment: Post-operative progress note Anesthesia: Postop Eval II Evaluation Mental status: Awake Pain Level: 0 nausea: No Vomiting: No
[2023-11-22] MEDS: 0.9% Normal Saline (1000mL) 1,000 ML 15 ML IV (20:15)
== END 2023-11-22 20:55 | disposition home or self-care (01) ==
LOC: ED 18:08 → SDC 18:35 → AC 18:36
PROVIDERS: Emergency Provider Emergency Medicine; PCP Internal Medicine; Referring Provider Obstetrics & Gynecology; Visit Provider Obstetrics & Gynecology
PROC: 10T24ZZ Resection of Products of Conception, Ectopic, Percutaneous Endoscopic Approach (ICD-10-PCS; CPT 59150; principal; 2023-11-22 18:45)
DX: O00.101 Right tubal pregnancy without intrauterine pregnancy (principal); O00.201 Right ovarian pregnancy without intrauterine pregnancy; Z90.79 Acquired absence of other genital organ(s)
CPT/HCPCS: 59151; 00840; 76817; 84702; 85014; 85018; 88305; 99285; J7030; J2405